=== PATIENT | female | born 1945 | race Caucasian/White ===

== ENCOUNTER 2019-06-24 13:24 | Inpatient (IN) ==
[2019-06-24] MEDS ORDERED: Ipratropium/Albuterol Neb 3 ML IH ONE (13:49)
--- NOTE | 2019-06-24 13:50 | Emergency Department Note ---
Disposition Clinical Impression: Pulmonary nodule, Acute exacerbation of chronic obstructive airways disease Community acquired pneumonia Qualifiers: Laterality: right Lung location: lower lobe of lung Qualified Code(s): J18.1 - Lobar pneumonia, unspecified organism Congestive heart failure Qualifiers: Heart failure type: unspecified Heart failure chronicity: unspecified Qualified Code(s): I50.9 - Heart failure, unspecified Compression fracture of T8 vertebra Qualifiers: Encounter type: initial encounter Qualified Code(s): S22.060A - Wedge compression fracture of T7-T8 vertebra, initial encounter for closed fracture Disposition: Admitted As Inpatient Condition: Fair Time of Disposition: 16:01 General Adult HPI - General Chief complaint: ED Shortness of Breath/Dyspnea Stated complaint: LINDA Time Seen by Provider: 06/24/19 13:26 Source: family Limitations: no limitations Nursing Notes Reviewed: Yes Vital Signs Reviewed: Yes - History of Present Illness HPI Narrative: Ms. Munoz is a 74 yo woman presenting to the ED on 06/24/19 for evaluation of back pain "along her backbone" of 2 days duration that improves with rest, NSAIDs and percocet. THe pain started when she fell while getting out of bed and caught herself by her left arm. She was seen two days ago for shortness of breath. She is on home O2 2L. She denies syncope, prodromal symptoms, chills, [place], LOC, abdominal pain, CP, vomiting, diarrhea, burning with urination, recent illness, or increased SOB w/ exertion. PMH significant for COPD, possible stroke per granddaughter a few years ago. No history of NH, anticoagulation. Social history significant for quitting smoking approximately 3.5 years ago. Pain Scale: 0 - Related Data Home Medications Medication Instructions Recorded Confirmed Atorvastatin Calcium [Lipitor] 80 mg PO HS 11/07/16 06/24/19 Ipratropium/Albuterol Sulfate 2 puff IH Q4H PRN 11/07/16 06/24/19 [Combivent Respimat Inhal [place]] Levothyroxine [Synthroid] 175 mcg PO DAILY 11/07/16 06/24/19 Lisinopril [Zestril] 20 mg PO DAILY 11/07/16 06/24/19 OxyCODONE/APAP 10/325 [Percocet 1 tab PO Q6HR PRN 11/07/16 06/24/19 10/325 MG] Trazodone HCl 25 mg PO HS 11/07/16 06/24/19 metFORMIN [Glucophage] 500 mg PO BIDWM 11/07/16 06/24/19 Albuterol Sulfate [Proair Hfa] 2 puff IH Q4-6H PRN 11/08/16 06/24/19 Ipratropium/Albuterol Neb [Duoneb] 3 ml IH Q6HR PRN 11/08/16 06/24/19 Pediatric Multivit Comb #25/FA 300 mcg PO DAILY 11/08/16 06/24/19 [Flintstones Multivit Chew Tab] Erythromycin [Wilbert-Tab] 250 mg PO BID 06/24/19 06/24/19 Previous Rx's Medication Instructions Recorded Budesonide/Formoterol 160/4.5 2 puff IH BIDR #1 inhaler 11/09/16 [Symbicort 160/4.5] predniSONE [PredniSONE] 30 mg PO DAILY 3 Days tablet 11/09/16 Allergies Allergy/AdvReac Type Severity Reaction Status Date / Time No Known Allergies Allergy Verified 11/08/16 15:24 All systems ED: reviewed and negative except as stated. Cardiovascular: Reports: dyspnea on exertion Respiratory: Reports: dyspnea Neurological: Reports: other (dizziness) Past Medical History - Past Medical History Attestation: Yes The following information was validated with the patient. Source: patient, old records reviewed, obtained from family, nursing notes reviewed Medical history: Reports: COPD, diabetes, hypertension, thyroid disease Surgical history: Reports: cholecystectomy Psychiatric history: Reports: no psych history - Social History Smoking Status: Former smoker Smokeless Tobacco Status: No Alcohol use: Reports: none Drug use: Reports: none Physical Exam PE Gen: AOx3, responsive ENT: No discharge from nose, eyes tearing 2/2 anxiety, pupils equal and reactive, no lymphadenopathy palpable Card: Regular rhythm and rate w/ 2/6 systolic possible murmur on auscultation. No cyanosis, no clubbing, no pitting edema peripherally. Good perfusion to extremities. Resp: Decreased breath sounds bilaterally w/o wheezes, cough or stridor. GI: Abdomen soft, nondistended, nontender to palpation. No bruit on auscultaion. : No suprapubic tenderness or distention on palpation. MSK: No erythema, edema or pain on palpation along spine, no abrasion or ecchymoses on back. Skin dry, flaking along extremities. Negative for rash. Neuro: CNI-XII intact. Resting tremor of left hand. Psych: Appropriate affect, anxious - General Limitations: no limitations General appearance: alert, in no apparent distress Course Course Narrative: VS stable. Patient O2 in 60s-80s on initial presentation, improved to 97% with 6L NC in room and now in mid90s on 2L. Conflicting histories from patient and family members require consideration of both musculoskeletal, cardiac, neurological and respiratory etiologies. EKG, BNP, troponin ordered along with CXR, CT chest to evaluate for fracture and CT-A to r/o PE. CXR consistent with RLL pneumonia with interstitial edema and cardiomegaly. BNP elevated at 404 suggesting new-onset CHF compared to results of patient's last echo [address]-A negative, CT thoracic indicated compression fracture in T8 and 7 mm lung nodule. Discussed with hospitalist, patient to be admitted. - Reevaluation(s) Reevaluation #1: Patient counseled no results and encouraged to remain for admission. Initially did not want to remain, but after second discussion with Dr. Osorio agreed with inpatient treatment. VS stable. Vital Signs Temperature 98.1 F 06/24/19 13:33 Pulse Rate 95 06/24/19 13:33 Respiratory Rate 16 06/24/19 13:33 Blood Pressure 159/88 06/24/19 13:33 O2 Sat by Pulse Oximetry 83 06/24/19 13:33 Temperature 98.1 F 06/24/19 13:33 Pulse Rate 95 06/24/19 13:33 Respiratory Rate 16 06/24/19 14:13 Blood Pressure 159/88 06/24/19 13:33 O2 Sat by Pulse Oximetry 93 06/24/19 14:13 Oxygen Delivery Oxygen Delivery Nasal Cannula Medical Decision Making - Medical Records Medical records reviewed: Yes I reviewed the patient's medical records. - Lab Data Lab results reviewed: Yes I reviewed the patient's lab results. Result diagrams: 06/24/19 14:10 06/24/19 14:10 Lab Results 06/24/19 06/24/19 06/24/19 Range/Units 14:10 14:10 14:10 WBC 9.7 (4.3-11.1) K/mcL RBC 4.13 (3.82-4.97) M/mcL Hgb 11.6 (11.5-15.4) g/dL Hct 38.6 (35.3-44.9) % MCV 93.5 (83.0-100.0) fL MCH 28.1 (28.0-33.3) pg MCHC 30.1 L (31.6-35.5) g/dL RDW 14.2 (11.5-14.5) % Plt Count 249 (140-400) K/mcL MPV 9.5 (9.4-12.4) fL Immature Gran % 0.7 (0-4) % Seg Neutrophils % 79.8 % Lymphocytes % 12.2 % Monocytes % 5.0 % Eosinophils % 2.0 % Basophils % 0.3 % Neutrophils # 7.8 (1.6-8.9) K/mcL Lymphocytes # 1.2 (0.6-4.6) K/mcL Monocytes # 0.5 (0.0-1.3) K/mcL Eosinophils # 0.2 (0.0-0.6) K/mcL Basophils # 0.0 (0.0-0.2) K/mcL Sodium 135 L (136-145) mEq/L Potassium 4.0 (3.5-5.1) mEq/L Chloride 93 L (98-107) mEq/L Carbon Dioxide 36 H (23-29) mEq/L BUN 19 (8-23) mg/dL Creatinine 1.24 H (0.60-1.20) mg/dL Est GFR ( Amer) 51 L (> 60) Est GFR (Non-Af Amer) 42 L (> 60) BUN/Creatinine Ratio 15 (6-26) Glucose 171 H (70-105) mg/dL Calculated Osmolality 286 (280-300) Lactic Acid (0.5-2.2) mmol/L Calcium 9.1 (8.6-10.3) mg/dL Troponin I < 0.03 (< 0.04) ng/mL B-Natriuretic Peptide 404 H (Less than 100) pg/mL Urine Color (Yellow) Urine Clarity (Clear) Urine pH (5.0-8.0) pH Units Ur Specific [place] (1.010-1.025) Urine Protein (Neg-Trace) mg/dL Urine Glucose (UA) (Normal) mg/dL Urine Ketones (Negative) mg/dL Urine Blood (Negative) Urine Nitrite (Negative) Urine Bilirubin (Negative) Urine Urobilinogen (Normal) mg/dL Ur Leukocyte Esterase (Negative) Urine Microscopic RBC (0-3) per hpf Urine Microscopic WBC (0-3) per hpf Ur Squamous Epith Cells (None-Few) per lpf Urine Bacteria (None-Few) per hpf Hyaline Casts (None-Few) per lpf Ur Culture Indicated? (NO) 06/24/19 06/24/19 Range/Units 14:54 15:30 WBC (4.3-11.1) K/mcL RBC (3.82-4.97) M/mcL Hgb (11.5-15.4) g/dL Hct (35.3-44.9) % MCV (83.0-100.0) fL MCH (28.0-33.3) pg MCHC (31.6-35.5) g/dL RDW (11.5-14.5) % Plt Count (140-400) K/mcL MPV (9.4-12.4) fL Immature Gran % (0-4) % Seg Neutrophils % % Lymphocytes % % Monocytes % % Eosinophils % % Basophils % % Neutrophils # (1.6-8.9) K/mcL Lymphocytes # (0.6-4.6) K/mcL Monocytes # (0.0-1.3) K/mcL Eosinophils # (0.0-0.6) K/mcL Basophils # (0.0-0.2) K/mcL Sodium (136-145) mEq/L Potassium (3.5-5.1) mEq/L Chloride (98-107) mEq/L Carbon Dioxide (23-29) mEq/L BUN (8-23) mg/dL Creatinine (0.60-1.20) mg/dL Est GFR ( Amer) (> 60) Est GFR (Non-Af Amer) (> 60) BUN/Creatinine Ratio (6-26) Glucose (70-105) mg/dL Calculated Osmolality (280-300) Lactic Acid 1.5 (0.5-2.2) mmol/L Calcium (8.6-10.3) mg/dL Troponin I (< 0.04) ng/mL B-Natriuretic Peptide (Less than 100) pg/mL Urine Color Yellow (Yellow) Urine Clarity Clear (Clear) Urine pH 6.0 (5.0-8.0) pH Units Ur Specific [place] 1.013 (1.010-1.025) Urine Protein 30 H (Neg-Trace) mg/dL Urine Glucose (UA) Normal (Normal) mg/dL Urine Ketones Negative (Negative) mg/dL Urine Blood Negative (Negative) Urine Nitrite Negative (Negative) Urine Bilirubin Negative (Negative) Urine Urobilinogen Normal (Normal) mg/dL Ur Leukocyte Esterase Large H (Negative) Urine Microscopic RBC 0-3 (0-3) per hpf Urine Microscopic WBC 50-100 H (0-3) per hpf Ur Squamous Epith Cells Many H (None-Few) per lpf Urine Bacteria Few (None-Few) per hpf Hyaline Casts None Seen (None-Few) per lpf Ur Culture Indicated? YES A (NO) - Radiology Data Radiology results reviewed: Yes I reviewed the patient's radiology results. Chest X-Ray 06/24/19 13:45 IMPRESSION: Findings as above likely related to congestive heart failure and edema. Hazy opacity in the right lung base may represent asymmetric edema, atelectasis, or superimposed infection D/ / Marysol Umanzor MD / Marysol Umanzor MD Interpreting Provider: Marysol Umanzor MD Chest CTA 06/24/19 14:02 IMPRESSION: No thoracic aortic aneurysm. No dissection involving the arch or ascending thoracic aorta. Evaluation of the descending thoracic aorta is limited by poor bolus however no findings to suggest dissection. T8 compression fracture with loss of approximately 50% vertebral body height. Small right pleural effusion. Smooth interlobular septal wall thickening likely related to edema. Patchy opacities in the right lower lobe and right middle lobe which may represent atelectasis or infection. D/ / Marysol Umanzor MD / Marysol Umanzor MD Interpreting Provider: Marysol Umanzor MD Thoracic Spine CT 06/24/19 14:32 IMPRESSION: Moderate compression fracture of T8 of indeterminate age. No retropulsion of the posterior cortex. Mild 10% loss of height of the T5 vertebral body which could represent a compression fracture as well, of indeterminate age. A 7 mm left upper lobe nodule. Comparison with remote studies would be helpful if available. Otherwise, see below recommendation. RECOMMENDATIONS: 7.0 mm solid pulmonary nodule. Recommend a non-contrast Chest CT at 6-12 months, then consider an additional non-contrast Chest CT at 18-24 months. These guidelines do not apply to patients younger than 35 years, immunocompromised patients, and patients with cancer. Follow up in patients with significant comorbidities as clinically warranted. For lung cancer screening, adhere to Lung-RADS guidelines. Reference: Radiology. 2017; 284(1):228-43. D/ / Renuka Renae Cha, MD / Renuka Renae Cha, MD Interpreting Provider: Renuka Renae Cha, MD - EKG Data EKG #1 EKG shows normal: sinus rhythm Rhythm: PAC's [place]/QRS: normal Voltage: c/w LVH QTc: prolonged (519) When compared to previous EKG there are: changes noted (Prior EKG 11/07/16) Interpretation: no acute changes
[2019-06-24] MEDS ORDERED: predniSONE 20 MG TABLET PO ONE (13:59)
[2019-06-24] MEDS ORDERED: Isovue-370 500 ML BOTTLE IVP ONE (14:02)
[2019-06-24 14:24] LABS: Basophils % 0.3 %; Eosinophils # 0.2 K/mcL (0.0-0.6); Hematocrit 38.6 % (35.3-44.9); Hemoglobin 11.6 g/dL (11.5-15.4); Immature Granulocytes % 0.7 % (0-4); Lymphocytes # 1.2 K/mcL (0.6-4.6); Lymphocytes % 12.2 %; Mean Corpuscular HGB Conc 30.1 g/dL (31.6-35.5); Mean Corpuscular Hemoglobin 28.1 pg (28.0-33.3); Mean Corpuscular Volume 93.5 fL (83.0-100.0); Mean Platelet Volume 9.5 fL (9.4-12.4); Monocytes # 0.5 K/mcL (0.0-1.3); Neutrophils # 7.8 K/mcL (1.6-8.9); Platelet Count 249 K/mcL (140-400); Red Blood Count 4.13 M/mcL (3.82-4.97); Red Cell Distribution Width 14.2 % (11.5-14.5); Segmented Neutrophils % 79.8 %; White Blood Count 9.7 K/mcL (4.3-11.1)
[2019-06-24] MEDS ORDERED: cefTRIAXone 1,000 MG in Water for inj. (sterile) 10 ML IVP ONE (14:39)
[2019-06-24 14:44] LABS: BUN/Creatinine Ratio 15 (6-26); Blood Urea Nitrogen 19 mg/dL (8-23); Calcium 9.1 mg/dL (8.6-10.3); Carbon Dioxide 36 mEq/L (23-29); Chloride 93 mEq/L (98-107); Glucose 171 mg/dL (70-105); Osmolality,Calculated 286 (280-300); Sodium 135 mEq/L (136-145); Troponin I < 0.03 ng/mL (< 0.04); eGFR For African Americans 51 (> 60); eGFR For Non-African Americans 42 (> 60)
[2019-06-24] MEDS ORDERED: 0.9 % Sodium Chloride 500 ML IVC ONE (15:05)
[2019-06-24] MEDS ORDERED: 0.9 % Sodium Chloride 1,000 ML IVC SCH (15:15)
[2019-06-24 15:55] LABS: Bilirubin,Urine Negative (Negative); Blood,Urine Negative (Negative); Clarity,Urine Clear (Clear); Color,Urine Yellow (Yellow); Glucose,Urine (UA) Normal (Normal); Ketones,Urine Negative (Negative); Leukocyte Esterase,Urine Large (Negative); Nitrite,Urine Negative (Negative); Protein,Urine 30 mg/dL (Neg-Trace); Specific Gravity,Urine 1.013 (1.010-1.025); Urobilinogen,Urine Normal (Normal)
[2019-06-24 15:58] LABS: Hyaline Casts,Urine None Seen per lpf (None-Few); RBC,Urine 0-3 per hpf (0-3); Squamous Epithelial Cell,Urine Many per lpf (None-Few); WBC,Urine 50-100 per hpf (0-3)
[2019-06-24] MEDS ORDERED: *HR* FentaNYL (PF) 100 MCG/2 ML VIAL IVP ONE (16:05)
[2019-06-24 16:09] LABS: Bacteria,Urine Few per hpf (None-Few)
--- NOTE | 2019-06-24 16:12 | Emergency Department Note ---
Disposition Clinical Impression: Community acquired pneumonia Qualifiers: Laterality: right Lung location: lower lobe of lung Qualified Code(s): J18.1 - Lobar pneumonia, unspecified organism Congestive heart failure Qualifiers: Heart failure type: unspecified Heart failure chronicity: unspecified Qualified Code(s): I50.9 - Heart failure, unspecified Disposition: Admitted As Inpatient Condition: Fair Referrals: Onur Franklin MD [Primary Care Provider] - Forms: ED Satisfaction Letter Time of Disposition: 16:11 General Adult HPI - General Chief complaint: ED Shortness of Breath/Dyspnea Stated complaint: LINDA Time Seen by Provider: 06/24/19 13:26 Source: family Limitations: no limitations - History of Present Illness Pain Scale: 0 - Related Data Home Medications Medication Instructions Recorded Confirmed Atorvastatin Calcium [Lipitor] 80 mg PO HS 11/07/16 06/24/19 Ipratropium/Albuterol Sulfate 2 puff IH Q4H PRN 11/07/16 06/24/19 [Combivent Respimat Inhal [place]] Levothyroxine [Synthroid] 175 mcg PO DAILY 11/07/16 06/24/19 Lisinopril [Zestril] 20 mg PO DAILY 11/07/16 06/24/19 OxyCODONE/APAP 10/325 [Percocet 1 tab PO Q6HR PRN 11/07/16 06/24/19 10/325 MG] Trazodone HCl 25 mg PO HS 11/07/16 06/24/19 metFORMIN [Glucophage] 500 mg PO BIDWM 11/07/16 06/24/19 Albuterol Sulfate [Proair Hfa] 2 puff IH Q4-6H PRN 11/08/16 06/24/19 Ipratropium/Albuterol Neb [Duoneb] 3 ml IH Q6HR PRN 11/08/16 06/24/19 Pediatric Multivit Comb #25/FA 300 mcg PO DAILY 11/08/16 06/24/19 [Flintstones Multivit Chew Tab] Erythromycin [Wilbert-Tab] 250 mg PO BID 06/24/19 06/24/19 Previous Rx's Medication Instructions Recorded Budesonide/Formoterol 160/4.5 2 puff IH BIDR #1 inhaler 11/09/16 [Symbicort 160/4.5] predniSONE [PredniSONE] 30 mg PO DAILY 3 Days tablet 11/09/16 Allergies Allergy/AdvReac Type Severity Reaction Status Date / Time No Known Allergies Allergy Verified 11/08/16 15:24 Cardiovascular: Reports: dyspnea on exertion Respiratory: Reports: dyspnea Neurological: Reports: other (dizziness) Past Medical History - Past Medical History Medical history: Reports: COPD, diabetes, hypertension, thyroid disease Surgical history: Reports: cholecystectomy Psychiatric history: Reports: no psych history - Social History Smoking Status: Former smoker Smokeless Tobacco Status: No Alcohol use: Reports: none Drug use: Reports: none Physical Exam - General Limitations: no limitations General appearance: alert, in no apparent distress Course Vital Signs Temperature 98.1 F 06/24/19 13:33 Pulse Rate 95 06/24/19 13:33 Respiratory Rate 16 06/24/19 13:33 Blood Pressure 159/88 06/24/19 13:33 O2 Sat by Pulse Oximetry 83 06/24/19 13:33 Temperature 98.1 F 06/24/19 13:33 Pulse Rate 95 06/24/19 13:33 Respiratory Rate 16 06/24/19 14:13 Blood Pressure 159/88 06/24/19 13:33 O2 Sat by Pulse Oximetry 93 06/24/19 14:13 Oxygen Delivery Oxygen Delivery Nasal Cannula Medical Decision Making - Lab Data Result diagrams: 06/24/19 14:10 06/24/19 14:10 Lab Results 06/24/19 06/24/19 06/24/19 Range/Units 14:10 14:10 14:10 WBC 9.7 (4.3-11.1) K/mcL RBC 4.13 (3.82-4.97) M/mcL Hgb 11.6 (11.5-15.4) g/dL Hct 38.6 (35.3-44.9) % MCV 93.5 (83.0-100.0) fL MCH 28.1 (28.0-33.3) pg MCHC 30.1 L (31.6-35.5) g/dL RDW 14.2 (11.5-14.5) % Plt Count 249 (140-400) K/mcL MPV 9.5 (9.4-12.4) fL Immature Gran % 0.7 (0-4) % Seg Neutrophils % 79.8 % Lymphocytes % 12.2 % Monocytes % 5.0 % Eosinophils % 2.0 % Basophils % 0.3 % Neutrophils # 7.8 (1.6-8.9) K/mcL Lymphocytes # 1.2 (0.6-4.6) K/mcL Monocytes # 0.5 (0.0-1.3) K/mcL Eosinophils # 0.2 (0.0-0.6) K/mcL Basophils # 0.0 (0.0-0.2) K/mcL Sodium 135 L (136-145) mEq/L Potassium 4.0 (3.5-5.1) mEq/L Chloride 93 L (98-107) mEq/L Carbon Dioxide 36 H (23-29) mEq/L BUN 19 (8-23) mg/dL Creatinine 1.24 H (0.60-1.20) mg/dL Est GFR ( Amer) 51 L (> 60) Est GFR (Non-Af Amer) 42 L (> 60) BUN/Creatinine Ratio 15 (6-26) Glucose 171 H (70-105) mg/dL Calculated Osmolality 286 (280-300) Lactic Acid (0.5-2.2) mmol/L Calcium 9.1 (8.6-10.3) mg/dL Troponin I < 0.03 (< 0.04) ng/mL B-Natriuretic Peptide 404 H (Less than 100) pg/mL Urine Color (Yellow) Urine Clarity (Clear) Urine pH (5.0-8.0) pH Units Ur Specific [place] (1.010-1.025) Urine Protein (Neg-Trace) mg/dL Urine Glucose (UA) (Normal) mg/dL Urine Ketones (Negative) mg/dL Urine Blood (Negative) Urine Nitrite (Negative) Urine Bilirubin (Negative) Urine Urobilinogen (Normal) mg/dL Ur Leukocyte Esterase (Negative) 06/24/19 06/24/19 Range/Units 14:54 15:30 WBC (4.3-11.1) K/mcL RBC (3.82-4.97) M/mcL Hgb (11.5-15.4) g/dL Hct (35.3-44.9) % MCV (83.0-100.0) fL MCH (28.0-33.3) pg MCHC (31.6-35.5) g/dL RDW (11.5-14.5) % Plt Count (140-400) K/mcL MPV (9.4-12.4) fL Immature Gran % (0-4) % Seg Neutrophils % % Lymphocytes % % Monocytes % % Eosinophils % % Basophils % % Neutrophils # (1.6-8.9) K/mcL Lymphocytes # (0.6-4.6) K/mcL Monocytes # (0.0-1.3) K/mcL Eosinophils # (0.0-0.6) K/mcL Basophils # (0.0-0.2) K/mcL Sodium (136-145) mEq/L Potassium (3.5-5.1) mEq/L Chloride (98-107) mEq/L Carbon Dioxide (23-29) mEq/L BUN (8-23) mg/dL Creatinine (0.60-1.20) mg/dL Est GFR ( Amer) (> 60) Est GFR (Non-Af Amer) (> 60) BUN/Creatinine Ratio (6-26) Glucose (70-105) mg/dL Calculated Osmolality (280-300) Lactic Acid 1.5 (0.5-2.2) mmol/L Calcium (8.6-10.3) mg/dL Troponin I (< 0.04) ng/mL B-Natriuretic Peptide (Less than 100) pg/mL Urine Color Yellow (Yellow) Urine Clarity Clear (Clear) Urine pH 6.0 (5.0-8.0) pH Units Ur Specific [place] 1.013 (1.010-1.025) Urine Protein 30 H (Neg-Trace) mg/dL Urine Glucose (UA) Normal (Normal) mg/dL Urine Ketones Negative (Negative) mg/dL Urine Blood Negative (Negative) Urine Nitrite Negative (Negative) Urine Bilirubin Negative (Negative) Urine Urobilinogen Normal (Normal) mg/dL Ur Leukocyte Esterase Large H (Negative) Attestation Statement - Attestation Attestation: I reviewed the residents documentation and agree with the residents assessment and plan of care. I have personally had face to face time with the patient. (Brief History, Brief Exam, and MDM) I personally supervised and was present for the ladd/critical portions of the following procedures completed by the resident: EKG 74 year old female presents to the eD with complaints of chest pain and dyspne and mid thoracic back pain and was hypoxic upon arrival to 70% and typically wears 2LNC at all times and has been ttrated back to 2LN and is mainintsing 95% at this time. It appers she failed outptient therapy for pnuemoin and she may even have new onset CHF. We will obtin a CTA to rule out PE and tht study is otherwise PE negative. We have started IV ABX and will admit to medicne.
[2019-06-24] MEDS ORDERED: *HR* OxyCODONE/APAP 5/325 TABLET PO ONE (16:19)
[2019-06-24] MEDS ORDERED: *HR* OxyCODONE/APAP 10/325 TABLET PO PRN (16:33)
[2019-06-24] MEDS ORDERED: Ipratropium/Albuterol Neb 3 ML IH PRN (16:33)
[2019-06-24] MEDS ORDERED: Naloxone 0.4 MG/ML INJ IVP PRN (16:39)
--- NOTE | 2019-06-24 16:47 | Internal Med History&Physical ---
Date of Encounter: 06/24/19 Time of Encounter: 16:30 Internal Medicine - H&P: HPI Chief complaint: Shortness of breath, severe back pain Admitted From: Emergency Dept Plans for Post Hospital Care: Home History of present illness: Ms. Munoz is a 74 year old female patient with a history of essential hypertension, diabetes, COPD and chronic respiratory failure on home oxygen who presented to the ER with complaints of severe back pain that has been worsening since this morning. Patient had been having shortness of breath that began 2 days back and she was seen in urgent care where she was given a steroid injection and an antibiotic injection and was discharged home on azithromycin. At that time chest x-rays were done and patient was told that she did not have any pneumonia. She states her breathing improved somewhat but then she pushed herself up from bed 2 days back and may have caught her back and she began to have pain since then but it got worse this morning. No recent hospitalizations. No trauma. No fevers or chills. No significant cough or sputum production. She denies any numbness or tingling in her lower extremities. No bowel or bladder incontinence. Past Med Surg Social Fam HX - Past Medical History Attestation: Yes The following information was validated with the patient. Source: patient Medical history: COPD, diabetes, hypertension, thyroid disease Psychiatric history: no psych history - Past Surgical History Surgical History: cholecystectomy - Social History Smoking Status: Former smoker Smokeless Tobacco Status: No Alcohol use: none Drug use: none - Family History Mother Family Member Ethnicity: Non- Living Status: Hx Family Cardiac Disorders: No Hx Family Respiratory Disorders: Yes (TB) Hx Family Cancer: No Hx Family GI Disorders: No Hx Family Endocrine Disorder: No Hx Family Neuromuscular Disorders: No Hx Family Neurologic Disorders: No Hx Family HEENT Disorders: No Hx Family Autoimmune Disorders: No Internal Medicine - H&P: Meds Atorvastatin Calcium [Lipitor] 80 mg PO HS 11/07/16 [History] Ipratropium/Albuterol Sulfate [Combivent Respimat Inhal [place]] 2 puff IH Q4H PRN 11/07/16 [History] Levothyroxine [Synthroid] 175 mcg PO DAILY 11/07/16 [History] Lisinopril [Zestril] 20 mg PO DAILY 11/07/16 [History] OxyCODONE/APAP 10/325 [Percocet 10/325 MG] 1 tab PO Q6HR PRN 11/07/16 [History] Trazodone HCl 25 mg PO HS 11/07/16 [History] metFORMIN [Glucophage] 500 mg PO BIDWM 11/07/16 [History] Albuterol Sulfate [Proair Hfa] 2 puff IH Q4-6H PRN 11/08/16 [History] Ipratropium/Albuterol Neb [Duoneb] 3 ml IH Q6HR PRN 11/08/16 [History] Pediatric Multivit Comb #25/FA [Flintstones Multivit Chew Tab] 300 mcg PO DAILY 11/08/16 [History] Budesonide/Formoterol 160/4.5 [Symbicort 160/4.5] 2 puff IH BIDR #1 inhaler 11/09/16 [Rx] predniSONE [PredniSONE] 30 mg PO DAILY 3 Days tablet 11/09/16 [Rx] Erythromycin [Wilbert-Tab] 250 mg PO BID 06/24/19 [History] Allergy/AdvReac Type Severity Reaction Status Date / Time No Known Allergies Allergy Verified 11/08/16 15:24 All Systems PM: A 10-system review of systems was performed and is negative for pertinent findings except as documented above in the HPI. - Constitutional Constitutional: malaise, no chills, no fever(s), no night sweats - EENT Eyes: no change in vision, no discharge, no pain, no photophobia Ears: no ear discharge, no ear pain, no tinnitus Nose, mouth and throat: no dysphagia, no nasal discharge, no neck pain, no sore throat - Cardiovascular Cardiovascular ROS IM: no chest pain, no diaphoresis, no dyspnea, no lighth eadedness, no palpitations, no syncope - Respiratory Respiratory: dyspnea, no cough, no wheezing, no excessive phlegm production - Gastrointestinal Gastrointestinal: no abdominal pain, no diarrhea, no hematemesis, no hemat ochezia, no melena, no nausea, no vomiting - Genitourinary Genitourinary: no change in urinary stream, no dysuria, no flank pain, no hematuria - Musculoskeletal Musculoskeletal ROS IM: back pain, no numbness, no tingling - Integumentary Integumentary IM: no rash, no unusual bruising - Neurological Neurological ROS: no confusion, no convulsions, no focal weakness, no numbness, no tingling, no tremor(s) - Hematologic/Lymphatic Hematologic/Lymphatic: no easy bruising - Constitutional Vitals: Temp Pulse Resp BP Pulse Ox 98.1 F 95 16 159/88 93 06/24/19 13:33 06/24/19 13:33 06/24/19 14:13 06/24/19 13:33 06/24/19 14:13 Exam: General: Patient is alert, mild distress , oriented x 3, morbidly obese Head: atraumatic, normocephalic, ENT: Mucous membranes moist Eye: normal appearance, PERRL, no scleral icterus, no conjunctival injection Neck: normal inspection, trachea midline, full ROM, no carotid bruits Chest: normal inspection, symmetric chest rise Respiratory: Coarse breath sounds bilaterally, end expiratory wheezing. Cardiovascular: Regular rate and rhythm. s1 and s2 normal No clicks, rubs, gallops, or murmurs. No pedal edema Abdomen: Abdomen is soft, nontender. Bowel sounds are present Musculoskeletal: Spontaneously moving all extremities Skin: warm, dry and flaking skin all over Neuro: Alert oriented x 3 normal cranial nerves, no focal deficits Psych: Patient's affect is normal Internal Med - H&P Results - Labs CBC & Chem 7: 06/24/19 14:10 06/24/19 14:10 Labs: Short CBC 06/24/19 Range/Units 14:10 WBC 9.7 (4.3-11.1) K/mcL Hgb 11.6 (11.5-15.4) g/dL Hct 38.6 (35.3-44.9) % Plt Count 249 (140-400) K/mcL Neutrophils # 7.8 (1.6-8.9) K/mcL BMP 06/24/19 14:10 Sodium 135 L Potassium 4.0 Chloride 93 L Carbon Dioxide 36 H BUN 19 Creatinine 1.24 H Glucose 171 H Calcium 9.1 Cardiac Enzymes 06/24/19 Range/Units 14:10 Troponin I < 0.03 (< 0.04) ng/mL Urine 06/24/19 Range/Units 15:30 Urine Color Yellow (Yellow) Urine Clarity Clear (Clear) Urine pH 6.0 (5.0-8.0) pH Units Ur Specific [place] 1.013 (1.010-1.025) Urine Protein 30 H (Neg-Trace) mg/dL Urine Glucose (UA) Normal (Normal) mg/dL - Impressions ITS Impressions Chest X-Ray 06/24/19 13:45 IMPRESSION: Findings as above likely related to congestive heart failure and edema. Hazy opacity in the right lung base may represent asymmetric edema, atelectasis, or superimposed infection D/ / Marysol Umanzor MD / Marysol Umanzor MD Interpreting Provider: Marysol Umanzor MD Chest CTA 06/24/19 14:02 IMPRESSION: No thoracic aortic aneurysm. No dissection involving the arch or ascending thoracic aorta. Evaluation of the descending thoracic aorta is limited by poor bolus however no findings to suggest dissection. T8 compression fracture with loss of approximately 50% vertebral body height. Small right pleural effusion. Smooth interlobular septal wall thickening likely related to edema. Patchy opacities in the right lower lobe and right middle lobe which may represent atelectasis or infection. D/ / Marysol Umanzor MD / Marysol Umanzor MD Interpreting Provider: Marysol Umanzor MD Thoracic Spine CT 06/24/19 14:32 IMPRESSION: Moderate compression fracture of T8 of indeterminate age. No retropulsion of the posterior cortex. Mild 10% loss of height of the T5 vertebral body which could represent a compression fracture as well, of indeterminate age. A 7 mm left upper lobe nodule. Comparison with remote studies would be helpful if available. Otherwise, see below recommendation. RECOMMENDATIONS: 7.0 mm solid pulmonary nodule. Recommend a non-contrast Chest CT at 6-12 months, then consider an additional non-contrast Chest CT at 18-24 months. These guidelines do not apply to patients younger than 35 years, immunocompromised patients, and patients with cancer. Follow up in patients with significant comorbidities as clinically warranted. For lung cancer screening, adhere to Lung-RADS guidelines. Reference: Radiology. 2017; 284(1):228-43. D/ / Renuka Renae Cha, MD / Renuka Renae Cha, MD Interpreting Provider: Renuka Renae Cha, MD - Assessment and Plan (1) Pneumonia Current Visit: Yes Status: Suspected Qualifiers: Pneumonia type: due to Pneumococcus Laterality: right Lung location: middle lobe of lung Qualified Code(s): J13 - Pneumonia due to Streptococcus pneumoniae (2) Acute exacerbation of chronic obstructive airways disease Current Visit: Yes Status: Acute (3) Compression fracture of T8 vertebra Current Visit: Yes Status: Acute Qualifiers: Encounter type: initial encounter Qualified Code(s): S22.060A - Wedge compression fracture of T7-T8 vertebra, initial encounter for closed fracture (4) Morbid obesity with BMI of 40.0-44.9, adult Current Visit: Yes Status: Chronic (5) HTN (hypertension) Current Visit: Yes Status: Chronic Qualifiers: Hypertension type: essential hypertension Qualified Code(s): I10 - Essential (primary) hypertension (6) Chronic respiratory failure with hypoxia Current Visit: Yes Status: Chronic - Summary of Assessment and Plan Summary of Assessment and Plan: Suspected pneumococcal pneumonia: CT scan shows possible pneumonia involving the right middle lobe and lower lobe. We will treat with ceftriaxone and azithromycin. Check urine Legionella and streptococcal antigens. Check pro calcitonin. Follow blood cultures. If patient starts making any sputum, will send sputum for culture. COPD: With acute exacerbation. Patient does have increased wheezing bilaterally. Will place her on bronchodilators, prednisone. Chronic respiratory failure with hypoxia: Continue O2 supplementation. T5 and T8 compression fractures: Indeterminate age. Patient having severe back pain. Will treat with symptomatic measures. Patient already takes Percocet at home. We will continue this medication. Discussed with pain management. They will see the patient in consultation on Wednesday. In the meantime, recommend ambulation as tolerated. No need for brace. Pain control. Essential hypertension: Blood pressure elevated. Continue lisinopril. Diabetes mellitus type 2: Monitor blood sugars. Sliding scale insulin. Expect rise in blood sugars with use of prednisone. Will adjust insulin regimen accordingly. Mild acute kidney injury: Creatinine 1.24. Baseline normal. Patient received IV fluids in the ER. Will recheck in the morning. Avoid nephrotoxic agents DVT prophylaxis with subcutaneous heparin - Time Spent With Patient Total time spent is greater than 50% in coordination of care (as documented) at patient's floor/unit and/or counseling patient:
[2019-06-24] MEDS ORDERED: *HR* Acetaminophen w/Cod 300-30 mg 1 TAB TABLET PO PRN (16:56)
[2019-06-24] MEDS ORDERED: Acetaminophen IV 1,000 MG/100 ML INFUS..BTL IVPB PRN (16:57)
[2019-06-24] MEDS ORDERED: D5% in Water 1,000 ML IVC PRN (17:03)
[2019-06-24] MEDS ORDERED: *HR* Dextrose 50 % in Water (Syg) 50 ML SYRINGE IVP PRN (17:03)
[2019-06-24] MEDS ORDERED: Dextrose Gel 15 GM/37.5 ML TUBE PO PRN ×2 (17:03)
[2019-06-24] MEDS: Insulin LISPRO 300 UNITS/3 ML VIAL SQ SCH ×2 (18:06→21:05)
[2019-06-24] MEDS: *HR* Heparin 5,000 UNIT/ML VIAL SQ SCH (18:06)
[2019-06-24] MEDS: Azithromycin 500 MG in D5% in Water 250 ML IVPB SCH (18:07)
[2019-06-24] MEDS: Ipratropium/Albuterol Neb 3 ML IH SCH ×2 (19:56→22:21)
[2019-06-24] MEDS: traZODone 50 MG TABLET PO SCH (21:03)
[2019-06-24] MEDS: *HR* OxyCODONE/APAP 10/325 TABLET PO PRN (21:03)
[2019-06-24] MEDS: Budesonide/Formoterol 160/4.5 1 PUFF INH IH SCH (22:21)
[2019-06-25] MEDS: Ipratropium/Albuterol Neb 3 ML IH SCH ×4 (03:53→19:38)
[2019-06-25] MEDS: *HR* Heparin 5,000 UNIT/ML VIAL SQ SCH ×2 (05:49→16:49)
[2019-06-25 07:28] LABS: Basophils % 0.3 %; Eosinophils % 0.3 %; Hematocrit 36.4 % (35.3-44.9); Hemoglobin 10.6 g/dL (11.5-15.4); Immature Granulocytes % 0.8 % (0-4); Lymphocytes # 1.2 K/mcL (0.6-4.6); Lymphocytes % 16.3 %; Mean Corpuscular HGB Conc 29.1 g/dL (31.6-35.5); Mean Corpuscular Hemoglobin 27.7 pg (28.0-33.3); Mean Corpuscular Volume 95.3 fL (83.0-100.0); Mean Platelet Volume 9.9 fL (9.4-12.4); Monocytes # 0.6 K/mcL (0.0-1.3); Monocytes % 7.5 %; Neutrophils # 5.5 K/mcL (1.6-8.9); Platelet Count 214 K/mcL (140-400); Red Blood Count 3.82 M/mcL (3.82-4.97); Red Cell Distribution Width 14.1 % (11.5-14.5); Segmented Neutrophils % 74.8 %; White Blood Count 7.4 K/mcL (4.3-11.1)
[2019-06-25] MEDS: cefTRIAXone 1,000 MG in Water for inj. (sterile) 10 ML IVP SCH (07:56)
[2019-06-25] MEDS: predniSONE 20 MG TABLET PO SCH (07:56)
[2019-06-25] MEDS: Lisinopril 20 MG TABLET PO SCH (07:56)
[2019-06-25] MEDS: Insulin LISPRO 300 UNITS/3 ML VIAL SQ SCH ×4 (07:56→21:56)
[2019-06-25 08:06] LABS: Calcium 9.2 mg/dL (8.6-10.3); Potassium 4.3 mEq/L (3.5-5.1)
[2019-06-25] MEDS: *HR* OxyCODONE/APAP 10/325 TABLET PO PRN ×3 (09:32→21:54)
[2019-06-25] MEDS: Budesonide/Formoterol 160/4.5 1 PUFF INH IH SCH ×2 (10:39→19:38)
--- NOTE | 2019-06-25 12:53 | Internal Med Progress Note ---
Hospitalist Progress Note - Encounter Date of Encounter: 06/25/19 Time of Encounter: 12:51 - Subjective Interval History: Patient feels somewhat better today. Shortness of breath is improving. Back pain is also well controlled. She denies any nausea or vomiting. Tolerating diet well. Abdomen no abdominal discomfort. No chest pain. - Exam Vitals: Temp Pulse Resp BP Pulse Ox 97.5 F L 73 22 125/86 90 06/25/19 11:47 06/25/19 11:47 06/25/19 11:47 06/25/19 11:47 06/25/19 11:47 Exam: General: Patient is alert, no acute distress, oriented x 3 ENT: Mucous membranes moist Respiratory: Bilateral end expiratory wheezing. Prolonged expiratory phase. Bronchial breath sounds. Cardiovascular: Regular rate and rhythm. s1 and s2 normal No clicks, rubs, gallops, or murmurs. No pedal edema Abdomen: Abdomen is soft, nontender. Bowel sounds are present Musculoskeletal: Spontaneously moving all extremities Skin: warm, dry, intact. Neuro: Alert oriented x 3 normal cranial nerves, no focal deficits - Assessment and Plan (1) Pneumonia Current Visit: Yes Status: Suspected (2) Acute exacerbation of chronic obstructive airways disease Current Visit: Yes Status: Acute (3) Compression fracture of T8 vertebra Current Visit: Yes Status: Acute (4) Morbid obesity with BMI of 40.0-44.9, adult Current Visit: Yes Status: Chronic (5) HTN (hypertension) Current Visit: Yes Status: Chronic (6) Chronic respiratory failure with hypoxia Current Visit: Yes Status: Chronic DVT Prophylaxis: On subcutaneous heparin - Summary of Assessment and Plan Summary of Assessment and Plan: Right lung pneumonia: Improving. Continue current antibiotics. Blood cultures pending. Urine streptococcal and legionella antigens have been negative. COPD: Improving. Continue bronchodilators. Continue oral prednisone. Chronic respiratory failure with hypoxia: Continue O2 supplementation. T5 and T8 compression fractures: Indeterminate age. Pain well controlled. Supportive care. Essential hypertension: Blood pressure is better controlled. Continue lisinopril. Diabetes mellitus type 2: Blood sugars are well controlled. Continue current insulin regimen. Diabetic diet.. Mild acute kidney injury: Now resolved. Elevated BNP: Will obtain 2-D echocardiogram. DVT prophylaxis with subcutaneous heparin Moderate risk for complications - Time Spent with Patient Total time spent is greater than 50% in coordination of care (as documented) at patient's floor/unit and/or counseling patient: Internal Medicine: Result - Labs CBC & Chem 7: 06/25/19 07:03 06/25/19 07:03 Labs: Short CBC 06/24/19 06/25/19 Range/Units 14:10 07:03 WBC 9.7 7.4 (4.3-11.1) K/mcL Hgb 11.6 10.6 L (11.5-15.4) g/dL Hct 38.6 36.4 (35.3-44.9) % Plt Count 249 214 (140-400) K/mcL Neutrophils # 7.8 5.5 (1.6-8.9) K/mcL BMP 06/24/19 06/25/19 14:10 07:03 Sodium 135 L 138 Potassium 4.0 4.3 Chloride 93 L 97 L Carbon Dioxide 36 H 41 H* BUN 19 16 Creatinine 1.24 H 1.14 Glucose 171 H 146 H Calcium 9.1 9.2 Cardiac Enzymes 06/24/19 Range/Units 14:10 Troponin I < 0.03 (< 0.04) ng/mL Urine 06/24/19 Range/Units 15:30 Urine Color Yellow (Yellow) Urine Clarity Clear (Clear) Urine pH 6.0 (5.0-8.0) pH Units Ur Specific [place] 1.013 (1.010-1.025) Urine Protein 30 H (Neg-Trace) mg/dL Urine Glucose (UA) Normal (Normal) mg/dL - Impressions Impressions Chest X-Ray 06/24/19 13:45 IMPRESSION: Findings as above likely related to congestive heart failure and edema. Hazy opacity in the right lung base may represent asymmetric edema, atelectasis, or superimposed infection D/ / Marysol Umanzor MD / Marysol Umanzor MD Interpreting Provider: Marysol Umanzor MD Chest CTA 06/24/19 14:02 IMPRESSION: No thoracic aortic aneurysm. No dissection involving the arch or ascending thoracic aorta. Evaluation of the descending thoracic aorta is limited by poor bolus however no findings to suggest dissection. T8 compression fracture with loss of approximately 50% vertebral body height. Small right pleural effusion. Smooth interlobular septal wall thickening likely related to edema. Patchy opacities in the right lower lobe and right middle lobe which may represent atelectasis or infection. D/ / Marysol Umanzor MD / Marysol Umanzor MD Interpreting Provider: Marysol Umanzor MD Thoracic Spine CT 06/24/19 14:32 IMPRESSION: Moderate compression fracture of T8 of indeterminate age. No retropulsion of the posterior cortex. Mild 10% loss of height of the T5 vertebral body which could represent a compression fracture as well, of indeterminate age. A 7 mm left upper lobe nodule. Comparison with remote studies would be helpful if available. Otherwise, see below recommendation. RECOMMENDATIONS: 7.0 mm solid pulmonary nodule. Recommend a non-contrast Chest CT at 6-12 months, then consider an additional non-contrast Chest CT at 18-24 months. These guidelines do not apply to patients younger than 35 years, immunocompromised patients, and patients with cancer. Follow up in patients with significant comorbidities as clinically warranted. For lung cancer screening, adhere to Lung-RADS guidelines. Reference: Radiology. 2017; 284(1):228-43. D/ / Renuka Renae Cha, MD / Renuka Renae Cha, MD Interpreting Provider: Renuka Renae Cha, MD Consult Discharge Plan - Plan Referrals: Onur Franklin MD [Primary Care Provider] - (1) Pneumonia Qualifiers: Pneumonia type: due to Pneumococcus Laterality: right Lung location: middle lobe of lung Qualified Code(s): J13 - Pneumonia due to Streptococcus pneumoniae (3) Compression fracture of T8 vertebra Qualifiers: Encounter type: initial encounter Qualified Code(s): S22.060A - Wedge compression fracture of T7-T8 vertebra, initial encounter for closed fracture (5) HTN (hypertension) Qualifiers: Hypertension type: essential hypertension Qualified Code(s): I10 - Essential (primary) hypertension
[2019-06-25] MEDS: Azithromycin 500 MG in D5% in Water 250 ML IVPB SCH (15:33)
[2019-06-25] MEDS: Nystatin POWDER 30 GM BOTTLE TP SCH (21:54)
[2019-06-25] MEDS: traZODone 50 MG TABLET PO SCH (21:54)
[2019-06-26] MEDS: Ipratropium/Albuterol Neb 3 ML IH SCH ×5 (03:55→22:35)
[2019-06-26] MEDS: *HR* Heparin 5,000 UNIT/ML VIAL SQ SCH ×2 (06:00→16:43)
[2019-06-26] MEDS: *HR* OxyCODONE/APAP 10/325 TABLET PO PRN ×3 (06:03→17:42)
--- NOTE | 2019-06-26 07:32 | Pain Management Consultation ---
Date of Encounter: 06/26/19 Time of Encounter: 07:30 Assessment and Plan (1) Compression fracture of T8 vertebra Current Visit: Yes Status: Acute The patient has a chronic T8 compression fracture in the setting of chronic lower back pain. She has a years' long history of back pain that is unchanged from her current presentation. She has COPD. Major problems like thoracic / abdominal aneurysm have been ruled out. Recommend the followin. Oral analgesics consistent with her usual home dose and schedule. 2. Physical therapy/occupational therapy consult to treat pain and ascertain her functional capacity. If the patient can sit on the side of the bed, eat, and ambulate to the bathroom with little pain, there is little need for surgery at this moment. 3. Recommend discharge to home if function is at baseline and pain can be easily controlled with oral analgesics and lifestyle modification, finding a comfortable position. 4. I will have my office add her on to my clinic schedule for follow-up in one to two weeks so that we can monitor her progress. 5. Call with any questions, my cellphone number is [phone] The assessment and plan as outlined above was discussed with the patient who expressed understanding and agreement. All questions were answered. Qualifiers: Encounter type: initial encounter Qualified Code(s): S22.060A - Wedge compression fracture of T7-T8 vertebra, initial encounter for closed fracture History of Present Illness Chief complaint: back pain HPI: Ms. Munoz is a 74 year old female who has chronic back pain for which she takes oral pain medication as prescribed by her PCP. The pain in her back has been present in her back for the past 3 to 5 years. Pain became seemingly worse 4 days ago when she sat up in bed. Pain located middle of back, about bra strap l evel. It does not travel into the legs. She denies numbness or weakness in legs. She denies loss of bladder or bowel control. Pain is much better today. She is able to walk to and from bathroom with little assistance. RN in room agrees with that statement. She wishes to go home today. Able to sleep well, able to eat, not limited by pain Past Med Surg Social Fam HX - Past Medical History Medical history: COPD, diabetes, hypertension, thyroid disease Psychiatric history: no psych history - Past Surgical History Surgical History: cholecystectomy - Social History Smoking Status: Former smoker Smokeless Tobacco Status: No Alcohol use: none Drug use: none - Family History Mother Family Member Ethnicity: Non- Living Status: Hx Family Cardiac Disorders: No Hx Family Respiratory Disorders: Yes (TB) Hx Family Cancer: No Hx Family GI Disorders: No Hx Family Endocrine Disorder: No Hx Family Neuromuscular Disorders: No Hx Family Neurologic Disorders: No Hx Family HEENT Disorders: No Hx Family Autoimmune Disorders: No Medications and Allergies Albuterol Neb [Proventil Neb] 2.5 mg IH Q8H PRN 06/25/19 [History] Albuterol Sulfate [Ventolin Hfa] 2 puff IH Q4H PRN 06/25/19 [History] Atorvastatin Calcium [Lipitor] 80 mg PO HS 06/25/19 [History] Calcium Carbonate/Vitamin D3 [Calcium 500 + Vit D Caplet] 1 tab PO BID 06/25/19 [History] Cetirizine HCl [24Hour Allergy] 10 mg PO DAILY 06/25/19 [History] Citalopram Hydrobromide [Citalopram HBr] 20 mg PO DAILY 06/25/19 [History] Fluticasone/Salmeterol [Advair 250-50 Diskus] 1 puff IH BID 06/25/19 [History] Furosemide [Lasix] 40 mg PO DAILY 06/25/19 [History] Ipratropium/Albuterol Sulfate [Combivent Respimat 20-100 Mcg] 1 puff IH QID 06/25/19 [History] Levothyroxine Sodium 175 mcg PO DAILY 06/25/19 [History] Lisinopril [Zestril] 20 mg PO DAILY 06/25/19 [History] Multivitamin [One Daily] 1 tab PO DAILY 06/25/19 [History] Nystatin POWDER [Nystop] 1 appl TP BID 06/25/19 [History] OxyCODONE/APAP 10/325 [Percocet 10/325 MG] 1 tab PO Q6HR PRN 06/25/19 [History] Potassium Chloride [Klor-Con 10] 10 meq PO DAILY 06/25/19 [History] Trazodone HCl 25 mg PO HS 06/25/19 [History] Umeclidinium [place] [Incruse Ellipta] 1 puff IH DAILY PRN 06/25/19 [History] metFORMIN [Glucophage] 500 mg PO BIDWM 06/25/19 [History] Allergy/AdvReac Type Severity Reaction Status Date / Time No Known Allergies Allergy Verified 06/25/19 14:36 Review of Systems - Constitutional Constitutional ROS IM: no photophobia, no phonophobia, no daytime sleepiness, no fever(s), no stops breathing during sleep - EENT Nose, mouth and throat: no headache(s), no neck pain, no neck trauma - Cardiovascular Cardiovascular ROS: no chest pain, no leg edema, no lightheadedness - Respiratory Respiratory: no pain on inspiration, no pain with cough - Gastrointestinal Gastrointestinal: no abdominal pain, no constipation, no diarrhea, no heartburn - Genitourinary Genitourinary ROS: no difficulty urinating, no flank pain, no urinary hesitancy - Musculoskeletal Musculoskeletal ROS: no muscle weakness, no numbness, no radiating pain into limb, no tingling - Integumentary Integumentary: no erythema, no lesions, no swelling - Neurological Neurological ROS: no abnormal gait, no behavioral changes, no focal weakness, no radicular pain - Psychiatric Psychiatric general: no anxiety, no confusion, no depression - Hematologic/Lymphatic Hematologic/Lymphatic pediatric: no easy bleeding, no easy bruising Physical Exam Initial Vital Signs Temp Pulse Resp BP Pulse Ox 98.1 F 95 16 159/88 83 06/24/19 13:33 06/24/19 13:33 06/24/19 13:33 06/24/19 13:33 06/24/19 13:33 - Additional Findings EYES:: pupils equal and round, no myosis. SKIN:: no areas of echymoses or petechiae CARDIOVASCULAR:: regular rate and rhythm, no murmurs PULMONARY:: Quiet, normal respiratory pattern. GASTROINTESTINAL:: protuberant, nontender MUSCULOSKELETAL PALPATION:: paraspinous musculature is not tender to deep palpation in the lumbar area bilaterally. there is some tenderness in the midline thoracic spine just above the thoracolumbar junction. Not severe. STRENGTH:: RIGHT knee extension 5/5 :: LEFT knee extension 5/5 RIGHT knee flexion 5/5 :: LEFT knee flexion 5/5 RIGHT ankle dorsiflexion 5/5 :: LEFT ankle dorsiflexion 5/5 RIGHT ankle plantarflexion 5/5 :: LEFT ankle plantarflexion 5/5 RIGHT great toe dorsiflexion 5/5 :: LEFT great toe dorsiflexion 5/5 RIGHT great toe plantarflexion 5/5 :: LEFT great toe plantarflexion 5/5 NEUROLOGIC SENSATION:: hypesthesia is not noted in lower extremity dermatomes. PSYCHIATRIC:: ORIENTATION:: awake and alert. INSIGHT:: good awareness of illness. AFFECT:: pleasant. Radiology Images Viewed By Me:: 06/24/2019 CT spine shows no aneurysmal dilatation of the descending or ascending aort. There is a chronic T8 compression deformity without impact on the central canal. White blood cell count and platelet count are normal over past two days I have reviewed and agree with information documented in the scribed documentation, ROS, patient medications, allergies, medical history, surgical history, social history, and family history. Results - Labs 06/25/19 07:03 06/25/19 07:03 Abnormal lab results Hgb 10.6 g/dL (11.5-15.4) L 06/25/19 07:03 MCH 27.7 pg (28.0-33.3) L 06/25/19 07:03 MCHC 29.1 g/dL (31.6-35.5) L 06/25/19 07:03 Sodium 135 mEq/L (136-145) L 06/24/19 14:10 Chloride 97 mEq/L (98-107) L 06/25/19 07:03 Carbon Dioxide 41 mEq/L (23-29) H* 06/25/19 07:03 Creatinine 1.24 mg/dL (0.60-1.20) H 06/24/19 14:10 Est GFR ( Amer) 56 (> 60) L 06/25/19 07:03 Est GFR (Non-Af Amer) 46 (> 60) L 06/25/19 07:03 Glucose 146 mg/dL (70-105) H 06/25/19 07:03 POC Glucose 194 mg/dL (70-99) H 06/25/19 19:34 B-Natriuretic Peptide 404 pg/mL (Less than 100) H 06/24/19 14:10 Urine Protein 30 mg/dL (Neg-Trace) H 06/24/19 15:30 Ur Leukocyte Esterase Large (Negative) H 06/24/19 15:30 Urine Microscopic WBC 50-100 per hpf (0-3) H 06/24/19 15:30 Ur Squamous Epith Cells Many per lpf (None-Few) H 06/24/19 15:30 Ur Culture Indicated? YES (NO) A 06/24/19 15:30 Diabetes panel 06/25/19 Range/Units 07:03 Sodium 138 (136-145) mEq/L Potassium 4.3 (3.5-5.1) mEq/L Chloride 97 L (98-107) mEq/L Carbon Dioxide 41 H* (23-29) mEq/L BUN 16 (8-23) mg/dL Creatinine 1.14 (0.60-1.20) mg/dL Glucose 146 H (70-105) mg/dL Calcium 9.2 (8.6-10.3) mg/dL Calcium panel 06/25/19 Range/Units 07:03 Calcium 9.2 (8.6-10.3) mg/dL Pituitary panel 06/25/19 Range/Units 07:03 Sodium 138 (136-145) mEq/L Potassium 4.3 (3.5-5.1) mEq/L Chloride 97 L (98-107) mEq/L Carbon Dioxide 41 H* (23-29) mEq/L BUN 16 (8-23) mg/dL Creatinine 1.14 (0.60-1.20) mg/dL Glucose 146 H (70-105) mg/dL Calcium 9.2 (8.6-10.3) mg/dL Adrenal panel 06/25/19 Range/Units 07:03 Sodium 138 (136-145) mEq/L Potassium 4.3 (3.5-5.1) mEq/L Chloride 97 L (98-107) mEq/L Carbon Dioxide 41 H* (23-29) mEq/L BUN 16 (8-23) mg/dL Creatinine 1.14 (0.60-1.20) mg/dL Glucose 146 H (70-105) mg/dL Calcium 9.2 (8.6-10.3) mg/dL All other labs normal. Consult Discharge Plan - Plan Referrals: Onur Franklin MD [Primary Care Provider] -
[2019-06-26] MEDS: Insulin LISPRO 300 UNITS/3 ML VIAL SQ SCH ×4 (08:07→20:41)
[2019-06-26] MEDS: cefTRIAXone 1,000 MG in Water for inj. (sterile) 10 ML IVP SCH (08:07)
[2019-06-26] MEDS: predniSONE 20 MG TABLET PO SCH (08:08)
[2019-06-26] MEDS: Nystatin POWDER 30 GM BOTTLE TP SCH ×2 (08:08→20:38)
[2019-06-26] MEDS: Furosemide 40 MG TABLET PO SCH (08:08)
[2019-06-26] MEDS: Lisinopril 20 MG TABLET PO SCH (08:08)
[2019-06-26] MEDS: Azithromycin 250 MG TABLET PO SCH (09:13)
[2019-06-26] MEDS: Budesonide/Formoterol 160/4.5 1 PUFF INH IH SCH ×3 (10:00→22:35)
--- NOTE | 2019-06-26 12:47 | Electrocardiograph Report ---
[address] [address] Test Date: 2019-06-24 Pat Name: Ale Munoz Department: EXAM14 Room: 2A24 Gender: F Excellence Consultant: : 1945 Requested By: [id number] Order Number: [id number] Reading MD: Kennedy Barros Measurements Intervals [place] Rate: 87 P: 72 MA: 174 QRS: 100 QRSD: 104 T: 76 QT: 431 QTc: 519 Interpretive Statements Sinus rhythm Atrial premature complexes Baseline artifact Electronically Signed On 06-26-2019 12:46:29 EDT by Kennedy Barros
--- NOTE | 2019-06-26 14:25 | Internal Med Progress Note ---
Hospitalist Progress Note - Encounter Date of Encounter: 06/26/19 Time of Encounter: 14:24 - Subjective Interval History: Patient reports that she is continuing to improve. Pain in her back is controlled with Percocet. Tolerating diet well. Continues to have cough although it is not as severe as before. Denies any chest pain. Shortness of breath improving. - Exam Vitals: Temp Pulse Resp BP Pulse Ox 97.6 F 88 22 131/83 98 06/26/19 11:16 06/26/19 11:16 06/26/19 11:16 06/26/19 11:16 06/26/19 11:16 Exam: General: Patient is alert, mild distress, oriented x 3 ENT: Mucous membranes moist Respiratory: Bilateral end expiratory wheezing. Prolonged expiratory phase. Bronchial breath sounds. Cardiovascular: Regular rate and rhythm. s1 and s2 normal No clicks, rubs, gallops, or murmurs. No pedal edema Abdomen: Abdomen is soft, nontender. Bowel sounds are present Musculoskeletal: Spontaneously moving all extremities , tenderness in mid back region over the lower thoracic spine Skin: warm, dry, intact. Neuro: Alert oriented x 3 normal cranial nerves, no focal deficits - Assessment and Plan (1) Pneumonia Current Visit: Yes Status: Suspected (2) Acute exacerbation of chronic obstructive airways disease Current Visit: Yes Status: Acute (3) Compression fracture of T8 vertebra Current Visit: Yes Status: Acute (4) Morbid obesity with BMI of 40.0-44.9, adult Current Visit: Yes Status: Chronic (5) HTN (hypertension) Current Visit: Yes Status: Chronic (6) Chronic respiratory failure with hypoxia Current Visit: Yes Status: Chronic (7) Aortic stenosis Current Visit: Yes Status: Acute (8) Mitral stenosis Current Visit: Yes Status: Acute (9) Pulmonary hypertension Current Visit: Yes Status: Chronic (10) Congestive heart failure Current Visit: Yes Status: Chronic DVT Prophylaxis: On subcutaneous heparin - Summary of Assessment and Plan Summary of Assessment and Plan: Right lung pneumonia: Patient continues to improve. Continue antibiotics. Will transition to oral regimen. COPD: Continue bronchodilators and steroids. Continue Symbicort. Chronic respiratory failure with hypoxia: Continue O2 supplementation. T5 and T8 compression fractures: Pain management has evaluated patient. Recommend physical therapy and outpatient follow-up. Essential hypertension: On lisinopril. Blood pressure remains elevated. We will start low-dose beta bhavana. Diabetes mellitus type 2: Blood sugars remain elevated. Will add long-acting insulin. Diabetic diet. Mild acute kidney injury: Now resolved. Chronic diastolic congestive heart failure: Continue Lasix. Echocardiogram done today showed mild left ventricular diastolic dysfunction. Moderate to severe aortic stenosis/moderate mitral stenosis and severe pulmonary hypertension: We will consult cardiology to evaluate patient and optimize medications. Patient has not seen cardiology and does not follow up with anyone here. DVT prophylaxis with subcutaneous heparin Moderate risk for complications - Time Spent with Patient Total time spent is greater than 50% in coordination of care (as documented) at patient's floor/unit and/or counseling patient: Internal Medicine: Result - Labs CBC & Chem 7: 06/25/19 07:03 06/25/19 07:03 - Impressions Impressions Echocardiogram 06/26/19 13:01 Impressions: LVEF 65-70%. Moderate concentric left ventricular hypertrophy. Mild left ventricular diastolic dysfunction. Normal right ventricular structure and function. Moderately dilated left atrium. Moderate-severe aortic stenosis, V1/V2 1.46/4.46 m/s, MG 38 mmHg. Moderate mitral stenosis, mean transmitral gradient is 8 mmHg. Mild mitral regurgitation. Mild tricuspid regurgitation. Severe pulmonary hypertension. Ordering physician notified via [employer]. Left Ventricular Wall Motion: Rest Echo Findings All wall segments showed normal motion. Findings: Study Quality * Technically adequate exam. ECG Findings * Normal sinus rhythm. Left Ventricle * LVEF 65-70%. * Normal LV chamber size and systolic function. * Moderate concentric left ventricular hypertrophy. * Mild left ventricular diastolic dysfunction. Right Ventricle * Normal right ventricular structure and function. Left Atrium * Moderately dilated left atrium. Right Atrium * Normal right atrial size. Interatrial Septum * Interatrial septum not well evaluated. Aortic Valve * Severely calcified aortic valve leaflets. * Moderate-severe aortic stenosis. * V1/V2 1.46/4.46 m/s, MG 38 mmHg, LVOT 2cm, PAOLO 0.99 cm\S\2. * No aortic regurgitation. Mitral Valve * Moderate mitral annular calcification * Mildly calcified mitral valve leaflets. * Moderate mitral stenosis. * Mean transmitral gradient is 8 mmHg, HR not documented, likely 70s. * Mild mitral regurgitation. Tricuspid Valve * Normal tricuspid valve structure. * No tricuspid stenosis. * Mild tricuspid regurgitation. * Estimated RVSP is 71 mmHg. * Estimated RA pressure is 3 mmHg. * Severe pulmonary hypertension. Pulmonic Valve * Pulmonic valve is not well visualized. * No pulmonic stenosis. * No pulmonic regurgitation. Aorta * Normally sized aortic root. Pericardium * The pericardium appears normal. IVC * The IVC is not dilated. * > 50% respiratory change Consult Discharge Plan - Plan Referrals: Onur Franklin MD [Primary Care Provider] - 06/30/19 9:45 am (1) Pneumonia Qualifiers: Pneumonia type: due to Pneumococcus Laterality: right Lung location: middle lobe of lung Qualified Code(s): J13 - Pneumonia due to Streptococcus pneumoniae (3) Compression fracture of T8 vertebra Qualifiers: Encounter type: initial encounter Qualified Code(s): S22.060A - Wedge compr ession fracture of T7-T8 vertebra, initial encounter for closed fracture (5) HTN (hypertension) Qualifiers: Hypertension type: essential hypertension Qualified Code(s): I10 - Essential (primary) hypertension (7) Aortic stenosis Qualifiers: Cardiac valve disease etiology: etiology unspecified Qualified Code(s): I35.0 - Nonrheumatic aortic (valve) stenosis (8) Mitral stenosis Qualifiers: Cardiac valve disease etiology: etiology unspecified Qualified Code(s): I05.0 - Rheumatic mitral stenosis (10) Congestive heart failure Qualifiers: Heart failure type: diastolic Heart failure chronicity: chronic Qualified Code(s): I50.32 - Chronic diastolic (congestive) heart failure
[2019-06-26] MEDS: traZODone 50 MG TABLET PO SCH (20:37)
[2019-06-27] MEDS: Ipratropium/Albuterol Neb 3 ML IH SCH ×3 (03:36→16:07)
[2019-06-27] MEDS: *HR* OxyCODONE/APAP 10/325 TABLET PO PRN ×3 (04:36→16:41)
[2019-06-27] MEDS: *HR* Heparin 5,000 UNIT/ML VIAL SQ SCH (06:11)
[2019-06-27] MEDS: Insulin LISPRO 300 UNITS/3 ML VIAL SQ SCH ×3 (07:50→17:01)
[2019-06-27] MEDS: predniSONE 20 MG TABLET PO SCH (07:52)
[2019-06-27] MEDS: Azithromycin 250 MG TABLET PO SCH (07:53)
[2019-06-27] MEDS: Furosemide 40 MG TABLET PO SCH (07:53)
[2019-06-27] MEDS: Lisinopril 20 MG TABLET PO SCH (07:53)
[2019-06-27] MEDS: cefTRIAXone 1,000 MG in Water for inj. (sterile) 10 ML IVP SCH (07:55)
--- NOTE | 2019-06-27 09:09 | Cardiology Consult Note ---
<Yunier Miller - Last Filed: 06/27/19 12:43> Date of Encounter: 06/27/19 Time of Encounter: 09:05 Assessment and Plan (1) Aortic stenosis Current Visit: Yes Status: Acute TTE reviewed with patient. EF preserved. Moderate to severe aortic stenosis, moderate mitral stenosis, severe PAH seen. Discussed with Dr. Finney, is more in the severe range. Close out-pt f/u recommended to discuss further work-up and TAVR referral. Qualifiers: Cardiac valve disease etiology: etiology unspecified Qualified Code(s): I35.0 - Nonrheumatic aortic (valve) stenosis (2) Mitral stenosis Current Visit: Yes Status: Acute Qualifiers: Cardiac valve disease etiology: etiology unspecified Qualified Code(s): I05.0 - Rheumatic mitral stenosis (3) Congestive heart failure Current Visit: Yes Status: Chronic Mild acute on chronic HFpEF with multivalvular disease. CXR with possible edema vs infection. BNP 400. on lasix. Pt denies orthopnea, PND, or edema currently. SOB improved. Low sodium diet and strict I&O. Qualifiers: Heart failure type: diastolic Heart failure chronicity: chronic Qualified Code(s): I50.32 - Chronic diastolic (congestive) heart failure Discussion w patient/family: The assessment and plan as outlined above was discussed with the patient and/or family members who expressed understanding and agreement. All questions were answered. Thank you for involving us in the care of your patient. Please call with any questions. History of Present Illness Consult date: 06/27/19 Requesting physician: Robbin Marc Consult reason: valvular heart disease Chief complaint: SOB, back pain History of present illness: Ms. Munoz is a 74 year old female with past medical history of HTN, DM, COPD, chronic respiratory failure on home O2 who presents with severe back pain and increased SOB for 2 days. She is found to have T8 and possible T5 compression fracture. CXR also shows concern for CHF vs PNA. TTE completed shows EF preserved with moderate to severe aortic stenosis, moderate mitral stenosis, and severe PAH. Cardiology consulted for further recommendation for valvular heart disease. Patient denies prior history of valvular heart disease. Denies weight gain, edema, or orthopnea. Denies having sputum production. Denies fever or chills. Reports fall out of bed recently. Denies syncope or dizziness. Past Med Surg Social Fam HX - Past Medical History Medical history: COPD, diabetes, hypertension, thyroid disease Psychiatric history: no psych history - Past Surgical History Surgical History: cholecystectomy - Social History Smoking Status: Former smoker Smokeless Tobacco Status: No Alcohol use: none Drug use: none - Family History Mother Family Member Ethnicity: Non- Living Status: Hx Family Cardiac Disorders: No Hx Family Respiratory Disorders: Yes (TB) Hx Family Cancer: No Hx Family GI Disorders: No Hx Family Endocrine Disorder: No Hx Family Neuromuscular Disorders: No Hx Family Neurologic Disorders: No Hx Family HEENT Disorders: No Hx Family Autoimmune Disorders: No Medications and Allergies Albuterol Neb [Proventil Neb] 2.5 mg IH Q8H PRN 06/25/19 [History] Albuterol Sulfate [Ventolin Hfa] 2 puff IH Q4H PRN 06/25/19 [History] Atorvastatin Calcium [Lipitor] 80 mg PO HS 06/25/19 [History] Calcium Carbonate/Vitamin D3 [Calcium 500 + Vit D Caplet] 1 tab PO BID 06/25/19 [History] Cetirizine HCl [24Hour Allergy] 10 mg PO DAILY 06/25/19 [History] Citalopram Hydrobromide [Citalopram HBr] 20 mg PO DAILY 06/25/19 [History] Fluticasone/Salmeterol [Advair 250-50 Diskus] 1 puff IH BID 06/25/19 [History] Furosemide [Lasix] 40 mg PO DAILY 06/25/19 [History] Ipratropium/Albuterol Sulfate [Combivent Respimat 20-100 Mcg] 1 puff IH QID 06/25/19 [History] Levothyroxine Sodium 175 mcg PO DAILY 06/25/19 [History] Lisinopril [Zestril] 20 mg PO DAILY 06/25/19 [History] Multivitamin [One Daily] 1 tab PO DAILY 06/25/19 [History] Nystatin POWDER [Nystop] 1 appl TP BID 06/25/19 [History] OxyCODONE/APAP 10/325 [Percocet 10/325 MG] 1 tab PO Q6HR PRN 06/25/19 [History] Potassium Chloride [Klor-Con 10] 10 meq PO DAILY 06/25/19 [History] Trazodone HCl 25 mg PO HS 06/25/19 [History] Umeclidinium [place] [Incruse Ellipta] 1 puff IH DAILY PRN 06/25/19 [History] metFORMIN [Glucophage] 500 mg PO BIDWM 06/25/19 [History] Azithromycin [Zithromax] 500 mg PO DAILY #6 tablet 06/27/19 [Rx] Cefdinir [Omnicef] 300 mg PO BID #10 capsule 06/27/19 [Rx] Allergy/AdvReac Type Severity Reaction Status Date / Time No Known Allergies Allergy Verified 06/25/19 14:36 All Systems Review: The remainder of the systems were reviewed and are negative Physical Examination Vital Signs, Last 4 Hours Temp Pulse Resp BP Pulse Ox 06/27/19 07:17 97.9 F 69 18 138/77 91 General: Conversant, No Apparent Distress HEENT: Atraumatic, Normocephaly, Mucus Membranes Moist Neck: No JVD, Normal carotid pulses Cardiac: Reg Rate and Rhythm, Normal S1 and S2, Other (3/6 systolic murmur) Lungs: No Wheeze, Rales, Rhonchi, Other (diminished right lung base) Neuro: Alert and responsive, No focal deficits noted Abdomen: Soft, Non-Tender Skin: No rashes noted on visualized skin Musculoskeletal: No Chest Wall Tenderness Extremities: No Clubbing, No Cyanosis, No Edema, Normal Pulses Results 06/25/19 07:03 06/25/19 07:03 Chest X-Ray 06/24/19 13:45 IMPRESSION: Findings as above likely related to congestive heart failure and edema. Hazy opacity in the right lung base may represent asymmetric edema, atelectasis, or superimposed infection D/ / Marysol Umanzor MD / Marysol Umanzor MD Interpreting Provider: Marysol Umanzor MD Chest CTA 06/24/19 14:02 IMPRESSION: No thoracic aortic aneurysm. No dissection involving the arch or ascending thoracic aorta. Evaluation of the descending thoracic aorta is limited by poor bolus however no findings to suggest dissection. T8 compression fracture with loss of approximately 50% vertebral body height. Small right pleural effusion. Smooth interlobular septal wall thickening likely related to edema. Patchy opacities in the right lower lobe and right middle lobe which may represent atelectasis or infection. D/ / Marysol Umanzor MD / Marysol Umanzor MD Interpreting Provider: Marysol Umanzor MD Thoracic Spine CT 06/24/19 14:32 IMPRESSION: Moderate compression fracture of T8 of indeterminate age. No retropulsion of the posterior cortex. Mild 10% loss of height of the T5 vertebral body which could represent a compression fracture as well, of indeterminate age. A 7 mm left upper lobe nodule. Comparison with remote studies would be helpful if available. Otherwise, see below recommendation. RECOMMENDATIONS: 7.0 mm solid pulmonary nodule. Recommend a non-contrast Chest CT at 6-12 months, then consider an additional non-contrast Chest CT at 18-24 months. These guidelines do not apply to patients younger than 35 years, immunocompromised patients, and patients with cancer. Follow up in patients with significant comorbidities as clinically warranted. For lung cancer screening, adhere to Lung-RADS guidelines. Reference: Radiology. 2017; 284(1):228-43. D/ / eRnuka Renae Cha, MD / Renuka Renae Cha, MD Interpreting Provider: Renuka Renae Cha, MD Echocardiogram 06/26/19 13:01 Impressions: LVEF 65-70%. Moderate concentric left ventricular hypertrophy. Mild left ventricular diastolic dysfunction. Normal right ventricular structure and function. Moderately dilated left atrium. Moderate-severe aortic stenosis, V1/V2 1.46/4.46 m/s, MG 38 mmHg. Moderate mitral stenosis, mean transmitral gradient is 8 mmHg. Mild mitral regurgitation. Mild tricuspid regurgitation. Severe pulmonary hypertension. Ordering physician notified via [employer]. Left Ventricular Wall Motion: Rest Echo Findings All wall segments showed normal motion. Findings: Study Quality * Technically adequate exam. ECG Findings * Normal sinus rhythm. Left Ventricle * LVEF 65-70%. * Normal LV chamber size and systolic function. * Moderate concentric left ventricular hypertrophy. * Mild left ventricular diastolic dysfunction. Right Ventricle * Normal right ventricular structure and function. Left Atrium * Moderately dilated left atrium. Right Atrium * Normal right atrial size. Interatrial Septum * Interatrial septum not well evaluated. Aortic Valve * Severely calcified aortic valve leaflets. * Moderate-severe aortic stenosis. * V1/V2 1.46/4.46 m/s, MG 38 mmHg, LVOT 2cm, PAOLO 0.99 cm\S\2. * No aortic regurgitation. Mitral Valve * Moderate mitral annular calcification * Mildly calcified mitral valve leaflets. * Moderate mitral stenosis. * Mean transmitral gradient is 8 mmHg, HR not documented, likely 70s. * Mild mitral regurgitation. Tricuspid Valve * Normal tricuspid valve structure. * No tricuspid stenosis. * Mild tricuspid regurgitation. * Estimated RVSP is 71 mmHg. * Estimated RA pressure is 3 mmHg. * Severe pulmonary hypertension. Pulmonic Valve * Pulmonic valve is not well visualized. * No pulmonic stenosis. * No pulmonic regurgitation. Aorta * Normally sized aortic root. Pericardium * The pericardium appears normal. IVC * The IVC is not dilated. * > 50% respiratory change - Imaging and Cardiology Echo: report reviewed - EKG Interpretation EKG results cardiology: personally reviewed Consult Discharge Plan - Plan Instructions: Azithromycin (By mouth), Cefdinir (By mouth), Chronic Obstructive Pulmonary Disease (DC) Referrals: Karan Mccarthy DO [Partnered Physician] - (T8 Compression fracture) Onur Franklin MD [Primary Care Provider] - 06/30/19 9:45 am (Please follow up as schedule...) Sherrill Finney DO [Partnered Physician] - (in 1 week Cardio will call patient for an appt.) Prescriptions: Cefdinir [Omnicef] 300 mg PO BID #10 capsule Azithromycin [Zithromax] 500 mg PO DAILY #6 tablet <Sherrill Finney - Last Filed: 06/27/19 16:24> Date of Encounter: 06/27/19 - Attending Attestation I examined this patient and my medical decision-making was reviewed with the AUTO TECHNICIAN MECHANIC. I agree with the documented findings, disposition and treatment plan as described. Assessment and Plan Discussion w patient/family: The assessment and plan as outlined above was discussed with the patient and/or family members who expressed understanding and agreement. All questions were answered. Thank you for involving us in the care of your patient. Please call with any questions. History of Present Illness History of present illness: Ms. Archey is a 74 year old female All Systems Review: The remainder of the systems were reviewed and are negative Results 06/25/19 07:03 06/25/19 07:03
[2019-06-27] MEDS: Nystatin POWDER 30 GM BOTTLE TP SCH (09:36)
[2019-06-27] MEDS: Budesonide/Formoterol 160/4.5 1 PUFF INH IH SCH (10:02)
[2019-06-27 11:49] VITALS: BP 130/72
--- NOTE | 2019-06-27 14:32 | Discharge Summary ---
- NOTES TO OUTPATIENT PROVIDER Notes to Outpatient Provider: Patient with a history of COPD, diabetes, hypertension and thyroid disease was hospitalized here with pneumonia and compression fracture involving T8 vertebra. Patient was treated with IV antibiotics and pain medications. Her symptoms have now improved. Patient's back pain is well controlled. She was evaluated by pain management and recommended physical therapy and outpatient follow-up. Patient was evaluated by physical therapy here and recommended home health. Her blood cultures have been negative. She is clinically stable for discharge. During her workup, patient underwent a 2-D echocardiogram which showed severe aortic stenosis and moderate mitral stenosis. Cardiology was consulted and recommended close outpatient follow-up and possible TAVR as outpatient. Will arrange for this. Patient also has severe pulmonary hypertension and chronic respiratory failure with hypoxia. She is already on home oxygen and also has home BiPAP machine. Orders not resulted at time of discharge: Pending orders 06/24/19 14:49 Culture,Blood [BC] Stat Date of Encounter: 06/27/19 Time of Encounter: 14:25 - Discharge Diagnosis (1) Pneumonia Priority: Primary Status: Suspected Qualifiers: Pneumonia type: due to Pneumococcus Laterality: right Lung location: middle lobe of lung Qualified Code(s): J13 - Pneumonia due to Streptococcus pneumoniae (2) Acute exacerbation of chronic obstructive airways disease Priority: Secondary Status: Acute (3) Compression fracture of T8 vertebra Priority: Secondary Status: Acute Qualifiers: Encounter type: initial encounter Qualified Code(s): S22.060A - Wedge compression fracture of T7-T8 vertebra, initial encounter for closed fracture (4) Morbid obesity with BMI of 40.0-44.9, adult Priority: Secondary Status: Chronic (5) HTN (hypertension) Priority: Secondary Status: Chronic Qualifiers: Hypertension type: essential hypertension Qualified Code(s): I10 - Essential (primary) hypertension (6) Chronic respiratory failure with hypoxia Priority: Secondary Status: Chronic (7) Aortic stenosis Priority: Secondary Status: Acute Qualifiers: Cardiac valve disease etiology: etiology unspecified Qualified Code(s): I35.0 - Nonrheumatic aortic (valve) stenosis (8) Mitral stenosis Priority: Secondary Status: Acute Qualifiers: Cardiac valve disease etiology: etiology unspecified Qualified Code(s): I05.0 - Rheumatic mitral stenosis (9) Pulmonary hypertension Priority: Secondary Status: Chronic (10) Congestive heart failure Priority: Secondary Status: Chronic Qualifiers: Heart failure type: diastolic Heart failure chronicity: chronic Qualified Code(s): I50.32 - Chronic diastolic (congestive) heart failure Hospital course: Ms. Munoz is a 74 year old female Patient with a history of COPD, diabetes, hypertension and thyroid disease was hospitalized here with pneumonia and com pression fracture involving T8 vertebra. Patient was treated with IV antibiotics and pain medications. Her symptoms have now improved. Patient's back pain is well controlled. She was evaluated by pain management and recommended physical therapy and outpatient follow-up. Patient was evaluated by physical therapy here and recommended home health. Her blood cultures have been negative. She is clinically stable for discharge. During her workup, patient underwent a 2-D echocardiogram which showed severe aortic stenosis and moderate mitral stenosis. Cardiology was consulted and recommended close outpatient follow-up and possible TAVR as outpatient. Will arrange for this. Patient also has severe pulmonary hypertension and chronic respiratory failure with hypoxia. She is already on home oxygen and also has home BiPAP machine. Discharge discussed with: patient, family, nurse, residential sales consultant - Time Spent with Patient Total time spent providing and/or coordinating discharge services: Time spent: Greater than 30 minutes (40 min) - Discharge Medications Prescriptions: New Azithromycin [Zithromax] 500 mg PO DAILY #6 tablet Cefdinir [Omnicef] 300 mg PO BID #10 capsule Continued Albuterol Sulfate [Ventolin Hfa] 2 puff IH Q4H PRN PRN Reason: Shortness Of Breath Atorvastatin Calcium [Lipitor] 80 mg PO HS Calcium Carbonate/Vitamin D3 [Calcium 500 + Vit D Caplet] 1 tab PO BID Cetirizine HCl [24Hour Allergy] 10 mg PO DAILY Citalopram Hydrobromide [Citalopram HBr] 20 mg PO DAILY Fluticasone/Salmeterol [Advair 250-50 Diskus] 1 puff IH BID Furosemide [Lasix] 40 mg PO DAILY Ipratropium/Albuterol Sulfate [Combivent Respimat 20-100 Mcg] 1 puff IH QID Levothyroxine Sodium 175 mcg PO DAILY Lisinopril [Zestril] 20 mg PO DAILY metFORMIN [Glucophage] 500 mg PO BIDWM Multivitamin [One Daily] 1 tab PO DAILY Nystatin POWDER [Nystop] 1 appl TP BID OxyCODONE/APAP 10/325 [Percocet 10/325 MG] 1 tab PO Q6HR PRN PRN Reason: Pain Potassium Chloride [Klor-Con 10] 10 meq PO DAILY Trazodone HCl 25 mg PO HS Umeclidinium [place] [Incruse Ellipta] 1 puff IH DAILY PRN PRN Reason: Shortness Of Breath Albuterol Neb [Proventil Neb] 2.5 mg IH Q8H PRN PRN Reason: Shortness Of Breath Home Medications: Albuterol Neb [Proventil Neb] 2.5 mg IH Q8H PRN 06/25/19 [History] Albuterol Sulfate [Ventolin Hfa] 2 puff IH Q4H PRN 06/25/19 [History] Atorvastatin Calcium [Lipitor] 80 mg PO HS 06/25/19 [History] Calcium Carbonate/Vitamin D3 [Calcium 500 + Vit D Caplet] 1 tab PO BID 06/25/19 [History] Cetirizine HCl [24Hour Allergy] 10 mg PO DAILY 06/25/19 [History] Citalopram Hydrobromide [Citalopram HBr] 20 mg PO DAILY 06/25/19 [History] Fluticasone/Salmeterol [Advair 250-50 Diskus] 1 puff IH BID 06/25/19 [History] Furosemide [Lasix] 40 mg PO DAILY 06/25/19 [History] Ipratropium/Albuterol Sulfate [Combivent Respimat 20-100 Mcg] 1 puff IH QID 06/25/19 [History] Levothyroxine Sodium 175 mcg PO DAILY 06/25/19 [History] Lisinopril [Zestril] 20 mg PO DAILY 06/25/19 [History] Multivitamin [One Daily] 1 tab PO DAILY 06/25/19 [History] Nystatin POWDER [Nystop] 1 appl TP BID 06/25/19 [History] OxyCODONE/APAP 10/325 [Percocet 10/325 MG] 1 tab PO Q6HR PRN 06/25/19 [History] Potassium Chloride [Klor-Con 10] 10 meq PO DAILY 06/25/19 [History] Trazodone HCl 25 mg PO HS 06/25/19 [History] Umeclidinium [place] [Incruse Ellipta] 1 puff IH DAILY PRN 06/25/19 [History] metFORMIN [Glucophage] 500 mg PO BIDWM 06/25/19 [History] Azithromycin [Zithromax] 500 mg PO DAILY #6 tablet 06/27/19 [Rx] Cefdinir [Omnicef] 300 mg PO BID #10 capsule 06/27/19 [Rx] Allergies/Adverse Reactions: Allergy/AdvReac Type Severity Reaction Status Date / Time No Known Allergies Allergy Verified 06/25/19 14:36 Date of admission: 06/25/19 16:01 Primary care physician: Onur Franklin MD Consults: 06/24/19 16:57 Consult to Occupational Therapy [CONS] Routine Comment: Evaluate, develop and implement POC Reason for Consult: Vertebral comp fracture Does patient have active BEDREST order?: No Is patient medically & hemodynamically stable?: Yes Consult to Physical Therapy [CONS] Routine Comment: Evaluate, develop and implement POC Reason for Consult: Vertebral comp fracture Does patient have active BEDREST order?: No Is patient medically & hemodynamically stable?: Yes 06/26/19 11:14 Consult to Nurse Navigator [CONS] Routine Comment: pn, copd 06/26/19 14:22 Consult to Cardiology [CONS] Routine Comment: Consulting Provider: [facility] [place] Reason for Consult: Moderate to severe / Moderate MS/ Pulm HTN. Worsened since 2015 Call Completed: No 06/27/19 12:33 Consult to Nutrition [CONS] Routine Comment: Consulting Provider: NUTRITION Reason for Dietary Consult: Diet Education Other:: Needs examples of appropriate and inappropriate dietary intake Discharging clinician: Robbin Marc Anticipated date of discharge: 06/27/19 - Constitutional Vitals: Temp Pulse Resp BP Pulse Ox 98.0 F 84 17 130/72 93 06/27/19 11:46 06/27/19 11:46 06/27/19 11:46 06/27/19 11:46 06/27/19 10:04 Exam: General: Patient is alert, no acute distress, oriented x 3 Respiratory: Prolonged expiratory phase, bronchial breath sounds. Cardiovascular: Regular rate and rhythm. s1 and s2 normal systolic murmur. No pedal edema Abdomen: Abdomen is soft, nontender. Bowel sounds are present Musculoskeletal: Spontaneously moving all extremities Skin: warm, dry, intact. Neuro: Alert oriented x 3 normal cranial nerves, no focal deficits - Patient Status Disposition: Home Health Service Condition: Fair Functional capacity at discharge: uses cane/walker Overall status at discharge: patient is progressing back to baseline - Discharge Instructions Instructions: Chronic Obstructive Pulmonary Disease (DC) Follow Up With: Onur Franklin MD [Primary Care Provider] - 06/30/19 9:45 am Sherrill Finney DO [Partnered Physician] - (in 1 week) Karan Mccarthy DO [Partnered Physician] - (T8 Compression fracture) - Diet and Activity Activity: as per physical therapy, increase activity as tolerated, wear oxygen at all times Diet: low fat, low cholesterol, low salt diet, other (Fluid restriction to 1.5 L per day)
--- NOTE | 2019-06-27 14:47 | Physician Discharge Referral ---
Home Health/Hosp Referral Info Transfer to: Home Health Provider in Charge Post Discharge: PCP - Diagnosis (1) Pneumonia Priority: Primary Status: Suspected (2) Acute exacerbation of chronic obstructive airways disease Priority: Secondary Status: Acute (3) Compression fracture of T8 vertebra Priority: Secondary Status: Acute (4) Morbid obesity with BMI of 40.0-44.9, adult Priority: Secondary Status: Chronic (5) HTN (hypertension) Priority: Secondary Status: Chronic (6) Chronic respiratory failure with hypoxia Priority: Secondary Status: Chronic (7) Aortic stenosis Priority: Secondary Status: Acute (8) Mitral stenosis Priority: Secondary Status: Acute (9) Pulmonary hypertension Priority: Secondary Status: Chronic (10) Congestive heart failure Priority: Secondary Status: Chronic - Respiratory Orders Oxygen / L per min (2-3) Smoking Cessation: Smoking cessation has been advised. For more information, call the [place] Tobacco Quit Line at 7-004-HHAQ-NOW. - Diet/Nutrition Diet/Nutrition Orders: Cardiac, No Concentrated Sweets - Activity Activity Orders: Walker - Services Needed Following services are medically necessary services: Nursing, Home Health Aide, Physical Therapy, Occupational Therapy - Transfer Medications Prescriptions: Cefdinir [Omnicef] 300 mg PO BID #10 capsule Azithromycin [Zithromax] 500 mg PO DAILY #6 tablet Home Medications: Albuterol Neb [Proventil Neb] 2.5 mg IH Q8H PRN 06/25/19 [History] Albuterol Sulfate [Ventolin Hfa] 2 puff IH Q4H PRN 06/25/19 [History] Atorvastatin Calcium [Lipitor] 80 mg PO HS 06/25/19 [History] Calcium Carbonate/Vitamin D3 [Calcium 500 + Vit D Caplet] 1 tab PO BID 06/25/19 [History] Cetirizine HCl [24Hour Allergy] 10 mg PO DAILY 06/25/19 [History] Citalopram Hydrobromide [Citalopram HBr] 20 mg PO DAILY 06/25/19 [History] Fluticasone/Salmeterol [Advair 250-50 Diskus] 1 puff IH BID 06/25/19 [History] Furosemide [Lasix] 40 mg PO DAILY 06/25/19 [History] Ipratropium/Albuterol Sulfate [Combivent Respimat 20-100 Mcg] 1 puff IH QID 06/25/19 [History] Levothyroxine Sodium 175 mcg PO DAILY 06/25/19 [History] Lisinopril [Zestril] 20 mg PO DAILY 06/25/19 [History] Multivitamin [One Daily] 1 tab PO DAILY 06/25/19 [History] Nystatin POWDER [Nystop] 1 appl TP BID 06/25/19 [History] OxyCODONE/APAP 10/325 [Percocet 10/325 MG] 1 tab PO Q6HR PRN 06/25/19 [History] Potassium Chloride [Klor-Con 10] 10 meq PO DAILY 06/25/19 [History] Trazodone HCl 25 mg PO HS 06/25/19 [History] Umeclidinium [place] [Incruse Ellipta] 1 puff IH DAILY PRN 06/25/19 [History] metFORMIN [Glucophage] 500 mg PO BIDWM 06/25/19 [History] Azithromycin [Zithromax] 500 mg PO DAILY #6 tablet 06/27/19 [Rx] Cefdinir [Omnicef] 300 mg PO BID #10 capsule 06/27/19 [Rx] Allergies/Adverse Reactions: Allergy/AdvReac Type Severity Reaction Status Date / Time No Known Allergies Allergy Verified 06/25/19 14:36 Certification: Further, I certify that my clinical findings support that this patient is homebound (i.e. absences from home require considerable and taxing effort and are for medical reasons or anabaptist services or infrequently or short duration when for other reasons) because: Homebound Reason: Patient requires assistance of a person or device to safely leave home, Severity of cardiac or pulmonary status limits activity tolerance Attestation: My signature below is to certify that this patient is under my care and that I, or nurse practitioner, or a physician's produce assistant working with me, has a [id number] encounter with this patient.
== END 2019-06-27 18:01 | disposition home health service (06) | DRG 193 ==
LOC: EMEROOARM 13:24 → 2ANU 13:24
PROVIDERS: ADMIT Internal Medicine Nephrology; ATTEND Internal Medicine Nephrology

== ENCOUNTER 2019-12-22 16:30 | Inpatient (IN) ==
[2019-12-22] MEDS ORDERED: Ipratropium/Albuterol Neb 3 ML IH ONE (16:40)
[2019-12-22] MEDS ORDERED: methylPREDNISolone 125 MG/2 ML VIAL IVP ONE (16:40)
[2019-12-22] MEDS ORDERED: *HR* OxyCODONE/APAP 5/325 TABLET PO ONE (16:43)
[2019-12-22 17:34] LABS: BUN/Creatinine Ratio 17 (6-26); Blood Urea Nitrogen 12 mg/dL (8-23); Calcium 8.8 mg/dL (8.6-10.3); Carbon Dioxide 36 mEq/L (23-29); Chloride 95 mEq/L (98-107); Glucose 110 mg/dL (70-105); Osmolality,Calculated 284 (280-300); Potassium 4.2 mEq/L (3.5-5.1); Sodium 137 mEq/L (136-145); eGFR For African Americans > 60 (> 60); eGFR For Non-African Americans > 60 (> 60)
[2019-12-22 17:35] LABS: Troponin I < 0.03 ng/mL (< 0.04)
[2019-12-22] MEDS ORDERED: levoFLOXacin 750 MG/150 ML 750 MG/150 ML BAG IVPB ONE (17:42)
[2019-12-22 17:56] LABS: Basophils % 0.5 %; Eosinophils # 0.2 K/mcL (0.0-0.6); Eosinophils % 3.6 %; Hemoglobin 9.3 g/dL (11.5-15.4); Immature Granulocytes % 0.8 % (0-4); Lymphocytes # 0.6 K/mcL (0.6-4.6); Lymphocytes % 9.7 %; Mean Corpuscular HGB Conc 32.1 g/dL (31.6-35.5); Mean Corpuscular Hemoglobin 28.1 pg (28.0-33.3); Mean Corpuscular Volume 87.6 fL (83.0-100.0); Mean Platelet Volume 8.8 fL (9.4-12.4); Monocytes # 0.5 K/mcL (0.0-1.3); Monocytes % 8.2 %; Neutrophils # 4.9 K/mcL (1.6-8.9); Platelet Count 389 K/mcL (140-400); Red Blood Count 3.31 M/mcL (3.82-4.97); Red Cell Distribution Width 14.1 % (11.5-14.5); Segmented Neutrophils % 77.2 %; White Blood Count 6.4 K/mcL (4.3-11.1)
[2019-12-22] MEDS ORDERED: Isovue-370 500 ML BOTTLE IVP ONE (17:58)
[2019-12-22] MEDS ORDERED: Furosemide 40 MG/4 ML VIAL IVP ONE (20:22)
[2019-12-22] MEDS ORDERED: *HR* LORazepam 0.5 MG TABLET PO ONE (20:22)
[2019-12-22] MEDS ORDERED: Naloxone 0.4 MG/ML INJ IVP PRN (21:16)
[2019-12-22] MEDS ORDERED: Bisacodyl 10 MG RECTAL SUPPOSITORY RC PRN (21:21)
[2019-12-22] MEDS: *HR* OxyCODONE/APAP 5/325 TABLET PO PRN (22:30)
[2019-12-23] MEDS: MethylPREDNISolone 40 MG/ML VIAL IVP SCH ×4 (00:13→17:44)
[2019-12-23] MEDS: Melatonin 3 MG TABLET PO PRN (00:24)
[2019-12-23] MEDS: *HR* Labetalol 20 MG/4 ML SYRINGE IVP PRN (00:25)
[2019-12-23] MEDS: Ipratropium/Albuterol Neb 3 ML IH SCH ×7 (00:51→23:28)
[2019-12-23] MEDS: *HR* OxyCODONE/APAP 5/325 TABLET PO PRN ×5 (02:39→21:29)
[2019-12-23] MEDS: tiZANidine 4 MG TABLET PO PRN ×3 (03:31→15:27)
[2019-12-23 04:22] LABS: Basophils % 0.3 %; Eosinophils % 0.3 %; Hematocrit 29.2 % (35.3-44.9); Immature Granulocytes % 1.9 % (0-4); Lymphocytes # 0.3 K/mcL (0.6-4.6); Lymphocytes % 3.6 %; Mean Corpuscular HGB Conc 30.8 g/dL (31.6-35.5); Mean Corpuscular Hemoglobin 27.6 pg (28.0-33.3); Mean Corpuscular Volume 89.6 fL (83.0-100.0); Mean Platelet Volume 9.1 fL (9.4-12.4); Monocytes # 0.1 K/mcL (0.0-1.3); Monocytes % 0.8 %; Platelet Count 427 K/mcL (140-400); Red Blood Count 3.26 M/mcL (3.82-4.97); Red Cell Distribution Width 13.7 % (11.5-14.5); Segmented Neutrophils % 93.1 %; White Blood Count 7.5 K/mcL (4.3-11.1)
[2019-12-23 04:35] LABS: BUN/Creatinine Ratio 20 (6-26); Blood Urea Nitrogen 14 mg/dL (8-23); Calcium 8.9 mg/dL (8.6-10.3); Carbon Dioxide 34 mEq/L (23-29); Chloride 90 mEq/L (98-107); Glucose 274 mg/dL (70-105); Osmolality,Calculated 288 (280-300); Potassium 4.2 mEq/L (3.5-5.1); Sodium 134 mEq/L (136-145); eGFR For African Americans > 60 (> 60); eGFR For Non-African Americans > 60 (> 60)
[2019-12-23] MEDS ORDERED: *HR* Heparin 5,000 UNIT/ML VIAL SQ SCH (06:00)
[2019-12-23] MEDS: Budesonide/Formoterol 160/4.5 1 PUFF INH IH SCH ×2 (07:40→19:52)
[2019-12-23] MEDS: Famotidine 20 MG TABLET PO SCH ×2 (07:42→15:26)
[2019-12-23] MEDS: Multivit/Ca/Min/Fe/FA 1 TAB TABLET PO SCH (07:42)
[2019-12-23] MEDS: Furosemide 40 MG/4 ML VIAL IVP SCH ×2 (07:43→17:30)
[2019-12-23] MEDS: Budesonide/Formoterol 80/4.5 1 PUFF INH IH SCH ×2 (07:43→19:48)
[2019-12-23] MEDS: Gabapentin 100 MG CAPSULE PO SCH ×3 (07:43→21:19)
[2019-12-23] MEDS: Insulin LISPRO 300 UNITS/3 ML VIAL SQ SCH ×4 (07:44→22:32)
[2019-12-23] MEDS: Nystatin POWDER 30 GM BOTTLE TP SCH (07:56)
[2019-12-23] MEDS: *HR* Enoxaparin 40 MG/0.4 ML SYRINGE SQ SCH (08:08)
[2019-12-23] MEDS: ALPRAZolam 0.5 MG TABLET PO PRN ×2 (14:38→22:39)
[2019-12-23] MEDS: traZODone 50 MG TABLET PO SCH (21:19)
[2019-12-24] MEDS: Nystatin POWDER 30 GM BOTTLE TP SCH ×3 (00:13→21:55)
[2019-12-24] MEDS: tiZANidine 4 MG TABLET PO PRN ×3 (00:32→18:00)
[2019-12-24] MEDS: *HR* OxyCODONE/APAP 5/325 TABLET PO PRN ×5 (03:12→21:56)
[2019-12-24] MEDS: Ipratropium/Albuterol Neb 3 ML IH SCH ×5 (03:44→19:24)
[2019-12-24] MEDS: MethylPREDNISolone 40 MG/ML VIAL IVP SCH (06:43)
[2019-12-24] MEDS: Budesonide/Formoterol 160/4.5 1 PUFF INH IH SCH ×2 (07:39→19:30)
[2019-12-24] MEDS: Budesonide/Formoterol 80/4.5 1 PUFF INH IH SCH ×2 (07:40→19:24)
[2019-12-24] MEDS: Famotidine 20 MG TABLET PO SCH ×2 (08:35→16:29)
[2019-12-24] MEDS: Furosemide 40 MG/4 ML VIAL IVP SCH (08:35)
[2019-12-24] MEDS: *HR* Enoxaparin 40 MG/0.4 ML SYRINGE SQ SCH (08:35)
[2019-12-24] MEDS: Insulin LISPRO 300 UNITS/3 ML VIAL SQ SCH ×4 (08:35→21:54)
[2019-12-24] MEDS: Multivit/Ca/Min/Fe/FA 1 TAB TABLET PO SCH (08:36)
[2019-12-24] MEDS: Gabapentin 100 MG CAPSULE PO SCH ×3 (08:36→21:55)
[2019-12-24] MEDS: Insulin DETEMIR 100 UNIT/ML X5UNITS SQ SCH ×2 (08:36→21:54)
[2019-12-24] MEDS: ALPRAZolam 0.5 MG TABLET PO PRN (10:43)
[2019-12-24] MEDS: *HR* Labetalol 20 MG/4 ML SYRINGE IVP PRN (11:36)
[2019-12-24] MEDS: traZODone 50 MG TABLET PO SCH (21:54)
[2019-12-24] MEDS: Melatonin 3 MG TABLET PO PRN (21:55)
[2019-12-25] MEDS: Ipratropium/Albuterol Neb 3 ML IH SCH ×3 (00:03→07:27)
[2019-12-25] MEDS: tiZANidine 4 MG TABLET PO PRN ×4 (02:03→22:12)
[2019-12-25] MEDS: ALPRAZolam 0.5 MG TABLET PO PRN ×2 (03:43→12:43)
[2019-12-25] MEDS: *HR* OxyCODONE/APAP 5/325 TABLET PO PRN ×3 (04:47→18:41)
[2019-12-25] MEDS: Budesonide/Formoterol 80/4.5 1 PUFF INH IH SCH (07:25)
[2019-12-25] MEDS: Budesonide/Formoterol 160/4.5 1 PUFF INH IH SCH ×2 (07:28→21:55)
[2019-12-25] MEDS ORDERED: *HR* Labetalol 20 MG/4 ML SYRINGE IVP PRN (07:30)
[2019-12-25] MEDS: Multivit/Ca/Min/Fe/FA 1 TAB TABLET PO SCH (07:55)
[2019-12-25] MEDS: predniSONE 20 MG TABLET PO SCH (07:55)
[2019-12-25] MEDS: Gabapentin 100 MG CAPSULE PO SCH ×3 (07:55→19:33)
[2019-12-25] MEDS: Famotidine 20 MG TABLET PO SCH ×2 (07:56→15:58)
[2019-12-25] MEDS: Furosemide 40 MG/4 ML VIAL IVP SCH (07:57)
[2019-12-25] MEDS: *HR* Enoxaparin 40 MG/0.4 ML SYRINGE SQ SCH (07:58)
[2019-12-25] MEDS: Insulin DETEMIR 100 UNIT/ML X5UNITS SQ SCH ×2 (07:59→19:35)
[2019-12-25] MEDS: Insulin LISPRO 300 UNITS/3 ML VIAL SQ SCH ×5 (08:00→22:12)
[2019-12-25] MEDS: Nystatin POWDER 30 GM BOTTLE TP SCH ×2 (08:19→19:33)
[2019-12-25 08:24] LABS: BUN/Creatinine Ratio 34 (6-26); Blood Urea Nitrogen 26 mg/dL (8-23); Carbon Dioxide 37 mEq/L (23-29); Chloride 88 mEq/L (98-107); Glucose 136 mg/dL (70-105); Magnesium 1.9 mg/dL (1.6-2.6); Osmolality,Calculated 285 (280-300); Potassium 4.4 mEq/L (3.5-5.1); Sodium 134 mEq/L (136-145); eGFR For African Americans > 60 (> 60); eGFR For Non-African Americans > 60 (> 60)
[2019-12-25] MEDS: Levalbuterol Neb 0.63 MG/3 ML IH SCH ×4 (08:29→21:55)
[2019-12-25] MEDS ORDERED: *HR* Heparin 5,000 UNIT/ML VIAL IVP PRN ×2 (11:48)
[2019-12-25] MEDS ORDERED: Heparin 25,000 UNIT/250 ML D5W 25,000 UNIT/250 ML IV.SOLN IVC SCH (12:00)
[2019-12-25 12:27] LABS: Mean Corpuscular HGB Conc 31.3 g/dL (31.6-35.5); Mean Corpuscular Hemoglobin 27.9 pg (28.0-33.3); Mean Corpuscular Volume 89.1 fL (83.0-100.0); Mean Platelet Volume 8.8 fL (9.4-12.4); Platelet Count 411 K/mcL (140-400); Red Blood Count 3.59 M/mcL (3.82-4.97); Red Cell Distribution Width 14.3 % (11.5-14.5)
[2019-12-25 12:31] LABS: Heparin anti-factor XA UFH 0.28 IU/mL (0.30-0.70)
[2019-12-25 12:32] LABS: Prothrombin Time 11.4 Seconds (9.4-12.1); White Blood Count 13.2 K/mcL (4.3-11.1)
[2019-12-25] MEDS: Melatonin 3 MG TABLET PO PRN (19:33)
[2019-12-25] MEDS: traZODone 50 MG TABLET PO SCH (19:33)
[2019-12-25] MEDS ORDERED: NON-FORMULARY MEDICATION 1 EACH EACH (Alendronate Sodium [Fosamax] 70 MG) PO SCH (21:21)
[2019-12-26] MEDS: *HR* OxyCODONE/APAP 5/325 TABLET PO PRN ×3 (01:38→16:12)
[2019-12-26] MEDS: Levalbuterol Neb 0.63 MG/3 ML IH SCH ×4 (03:56→16:28)
[2019-12-26] MEDS: Famotidine 20 MG TABLET PO SCH ×2 (06:36→16:08)
[2019-12-26] MEDS: tiZANidine 4 MG TABLET PO PRN ×2 (06:39→16:08)
[2019-12-26] MEDS ORDERED: Azithromycin 500 MG in 0.9 % Sodium Chloride 250 ML IVPB SCH (09:00)
[2019-12-26] MEDS ORDERED: *HR* Enoxaparin 40 MG/0.4 ML SYRINGE SQ SCH (09:00)
[2019-12-26] MEDS: Budesonide/Formoterol 160/4.5 1 PUFF INH IH SCH (10:03)
[2019-12-26] MEDS: Insulin LISPRO 300 UNITS/3 ML VIAL SQ SCH ×2 (11:10→14:10)
[2019-12-26] MEDS: Furosemide 40 MG/4 ML VIAL IVP SCH (11:10)
[2019-12-26] MEDS: predniSONE 20 MG TABLET PO SCH (11:11)
[2019-12-26] MEDS: Gabapentin 100 MG CAPSULE PO SCH ×2 (11:11→16:08)
[2019-12-26] MEDS: Multivit/Ca/Min/Fe/FA 1 TAB TABLET PO SCH (11:11)
[2019-12-26] MEDS: Insulin DETEMIR 100 UNIT/ML X5UNITS SQ SCH (11:12)
[2019-12-26] MEDS: Nystatin POWDER 30 GM BOTTLE TP SCH (11:13)
[2019-12-26] MEDS: ALPRAZolam 0.5 MG TABLET PO PRN (13:55)
[2019-12-26 14:13] VITALS: BP 131/72
== END 2019-12-26 16:52 | disposition short-term general hospital (02) | DRG 190 ==
LOC: EMEROOARM 16:30 → 3ANU 16:30
PROVIDERS: ADMIT Internal Medicine; ATTEND Internal Medicine

== ENCOUNTER 2020-07-19 22:28 | Observation (INO) ==
[2020-07-19] MEDS ORDERED: Ipratropium/Albuterol Neb 3 ML IH ONE (23:12)
[2020-07-19] MEDS ORDERED: predniSONE 20 MG TABLET PO ONE (23:12)
[2020-07-19 23:28] LABS: Basophils % 0.3 %; Eosinophils # 0.1 K/mcL (0.0-0.6); Eosinophils % 1.1 %; Hematocrit 35.3 % (35.3-44.9); Hemoglobin 10.4 g/dL (11.5-15.4); Immature Granulocytes % 0.6 % (0-4); Lymphocytes # 1.2 K/mcL (0.6-4.6); Lymphocytes % 18.2 %; Mean Corpuscular HGB Conc 29.5 g/dL (31.6-35.5); Mean Corpuscular Hemoglobin 25.7 pg (28.0-33.3); Mean Corpuscular Volume 87.2 fL (83.0-100.0); Mean Platelet Volume 10.9 fL (9.4-12.4); Monocytes # 0.5 K/mcL (0.0-1.3); Monocytes % 7.6 %; Neutrophils # 4.8 K/mcL (1.6-8.9); Platelet Count 196 K/mcL (140-400); Red Blood Count 4.05 M/mcL (3.82-4.97); Segmented Neutrophils % 72.2 %; White Blood Count 6.6 K/mcL (4.3-11.1)
[2020-07-19 23:38] LABS: BUN/Creatinine Ratio 26 (6-26); Blood Urea Nitrogen 19 mg/dL (8-23); Calcium 9.1 mg/dL (8.6-10.3); Carbon Dioxide 37 mEq/L (23-29); Chloride 99 mEq/L (98-107); Glucose 165 mg/dL (70-105); Osmolality,Calculated 294 (280-300); Potassium 4.8 mEq/L (3.5-5.1); Sodium 139 mEq/L (136-145); eGFR For African Americans > 60 (> 60); eGFR For Non-African Americans > 60 (> 60)
[2020-07-19 23:39] LABS: Troponin I 0.03 ng/mL (< 0.04)
[2020-07-20] MEDS ORDERED: Azithromycin 500 MG in D5% in Water 250 ML IVPB ONE (00:35)
[2020-07-20 01:01] LABS: Adenovirus Not Detected (Not Detect); Bordetella Pertussis Not Detected (Not Detect); Chlamydophila pneumoniae Not Detected (Not Detect); Coronavirus 229E Not Detected (Not Detect); Coronavirus HKU1 Not Detected (Not Detect); Coronavirus NL63 Not Detected (Not Detect); Coronavirus OC43 Not Detected (Not Detect); Human Metapneumovirus Not Detected (Not Detect); Human Rhinovirus/Enterovirus Not Detected (Not Detect); Influenza A Subtype 2009 H1 Not Detected (Not Detect); Influenza B Not Detected (Not Detect); Mycoplasma pneumoniae Not Detected (Not Detect); Parainfluenza Virus 1 Not Detected (Not Detect); Parainfluenza Virus 2 Not Detected (Not Detect); Parainfluenza Virus 3 Not Detected (Not Detect); Parainfluenza Virus 4 Not Detected (Not Detect); Respiratory Syncytial Virus Not Detected (Not Detect)
[2020-07-20 01:03] LABS: SARS-CoV-2 Not Detected (Not Detect)
[2020-07-20] MEDS ORDERED: Furosemide 40 MG/4 ML VIAL IVP ONE (01:08)
[2020-07-20] MEDS ORDERED: Naloxone 0.4 MG/ML INJ IVP PRN (01:41)
[2020-07-20] MEDS ORDERED: Gabapentin 300 MG CAPSULE PO ONE (04:50)
[2020-07-20 05:48] LABS: Hematocrit 34.1 % (35.3-44.9); Mean Corpuscular HGB Conc 29.3 g/dL (31.6-35.5); Mean Corpuscular Hemoglobin 25.3 pg (28.0-33.3); Mean Corpuscular Volume 86.1 fL (83.0-100.0); Mean Platelet Volume 10.7 fL (9.4-12.4); Platelet Count 194 K/mcL (140-400); Red Blood Count 3.96 M/mcL (3.82-4.97); White Blood Count 8.3 K/mcL (4.3-11.1)
[2020-07-20 06:08] LABS: Alanine Aminotransferase 18 Units/L (7-52); Albumin 3.9 g/dL (3.5-5.7); Albumin/Globulin Ratio 1.5 (1.1-2.2); Alkaline Phosphatase 63 Units/L (34-104); Aspartate Amino Transferase 15 Units/L (13-39); BUN/Creatinine Ratio 22 (6-26); Bilirubin,Total 0.3 mg/dL (0.3-1.0); Blood Urea Nitrogen 18 mg/dL (8-23); Calcium 9.2 mg/dL (8.6-10.3); Carbon Dioxide 36 mEq/L (23-29); Chloride 94 mEq/L (98-107); Globulin 2.6 g/dL (2.4-3.5); Glucose 328 mg/dL (70-105); Magnesium 1.5 mg/dL (1.6-2.6); Osmolality,Calculated 295 (280-300); Phosphorous 2.7 mg/dL (2.7-4.5); Potassium 4.9 mEq/L (3.5-5.1); Sodium 135 mEq/L (136-145); Total Protein 6.5 g/dL (6.4-8.9); Troponin I 0.03 ng/mL (< 0.04); eGFR For African Americans > 60 (> 60); eGFR For Non-African Americans > 60 (> 60)
[2020-07-20] MEDS ORDERED: Dextrose Gel 15 GM/37.5 ML TUBE PO PRN ×2 (06:55)
[2020-07-20] MEDS ORDERED: *HR* Dextrose 50 % in Water (Vial) 50 ML VIAL IVP PRN (06:55)
[2020-07-20] MEDS ORDERED: D5% in Water 1,000 ML IVC PRN (06:55)
[2020-07-20] MEDS ORDERED: Albuterol 2.5 MG/3 ML NEBULIZER IH PRN (06:59)
[2020-07-20] MEDS ORDERED: Insulin LISPRO 300 UNITS/3 ML VIAL SQ SCH ×3 (07:30→21:00)
[2020-07-20] MEDS: predniSONE 20 MG TABLET PO SCH (08:16)
[2020-07-20] MEDS ORDERED: Furosemide 40 MG/4 ML VIAL IVP SCH (09:00)
[2020-07-20] MEDS: Ipratropium/Albuterol Neb 3 ML IH SCH ×3 (10:03→22:11)
[2020-07-20] MEDS: Insulin LISPRO 300 UNITS/3 ML VIAL SQ SCH ×2 (12:51→18:21)
[2020-07-20] MEDS ORDERED: Gabapentin 100 MG CAPSULE PO SCH (15:00)
[2020-07-20] MEDS: *HR* Heparin 5,000 UNIT/ML VIAL SQ SCH (16:04)
[2020-07-20] MEDS: Gabapentin 300 MG CAPSULE PO SCH ×2 (16:04→20:59)
[2020-07-20] MEDS ORDERED: Famotidine 20 MG TABLET PO PRN (18:29)
[2020-07-20] MEDS ORDERED: Acetaminophen 325 MG TABLET PO PRN (18:29)
[2020-07-20] MEDS: tiZANidine 4 MG TABLET PO PRN (21:00)
[2020-07-20] MEDS ORDERED: Insulin DETEMIR 100 UNIT/ML X5UNITS SQ SCH (21:00)
[2020-07-21 01:11] LABS: Hematocrit 31.8 % (35.3-44.9); Hemoglobin 9.6 g/dL (11.5-15.4); Mean Corpuscular HGB Conc 30.2 g/dL (31.6-35.5); Mean Corpuscular Hemoglobin 25.3 pg (28.0-33.3); Mean Corpuscular Volume 83.7 fL (83.0-100.0); Mean Platelet Volume 11.1 fL (9.4-12.4); Platelet Count 236 K/mcL (140-400); Red Cell Distribution Width 14.8 % (11.5-14.5); White Blood Count 7.8 K/mcL (4.3-11.1)
[2020-07-21 01:26] LABS: BUN/Creatinine Ratio 30 (6-26); Blood Urea Nitrogen 30 mg/dL (8-23); Calcium 9.2 mg/dL (8.6-10.3); Carbon Dioxide 35 mEq/L (23-29); Chloride 93 mEq/L (98-107); Glucose 172 mg/dL (70-105); Osmolality,Calculated 292 (280-300); Potassium 4.2 mEq/L (3.5-5.1); Sodium 136 mEq/L (136-145); eGFR For African Americans > 60 (> 60); eGFR For Non-African Americans 53 (> 60)
[2020-07-21] MEDS: Ipratropium/Albuterol Neb 3 ML IH SCH ×2 (03:54→11:03)
[2020-07-21] MEDS: *HR* Heparin 5,000 UNIT/ML VIAL SQ SCH (06:14)
[2020-07-21] MEDS ORDERED: Azithromycin 500 MG in 0.9 % Sodium Chloride 250 ML IVPB SCH (07:00)
[2020-07-21 07:18] VITALS: BP 152/98
[2020-07-21] MEDS ORDERED: Furosemide 40 MG TABLET PO SCH (08:00)
[2020-07-21] MEDS: Insulin LISPRO 300 UNITS/3 ML VIAL SQ SCH (08:53)
[2020-07-21] MEDS: Gabapentin 300 MG CAPSULE PO SCH (08:54)
[2020-07-21] MEDS: predniSONE 20 MG TABLET PO SCH (08:54)
[2020-07-21] MEDS: tiZANidine 4 MG TABLET PO PRN (08:59)
[2020-07-21] MEDS ORDERED: lisinopriL 20 MG TABLET PO SCH (09:00)
== END 2020-07-21 11:17 | disposition home or self-care (01) ==
LOC: EMEROOARM 22:28 → 3BNU 22:28
PROVIDERS: ADMIT Internal Medicine; ATTEND Internal Medicine

== ENCOUNTER 2020-10-11 18:47 | Observation (INO) ==
[2020-10-11] MEDS ORDERED: Ipratropium/Albuterol Neb 3 ML IH ONE (18:56)
[2020-10-11] MEDS ORDERED: Dexamethasone 4 MG/ML VIAL IVP ONE (18:56)
[2020-10-11] MEDS ORDERED: Acetaminophen 325 MG TABLET PO ONE (19:04)
[2020-10-11 19:19] LABS: Basophils % 0.2 %; Eosinophils % 0.2 %; Hematocrit 35.5 % (35.3-44.9); Hemoglobin 10.8 g/dL (11.5-15.4); Immature Granulocytes % 0.5 % (0-4); Lymphocytes # 0.9 K/mcL (0.6-4.6); Mean Corpuscular HGB Conc 30.4 g/dL (31.6-35.5); Mean Corpuscular Hemoglobin 26.7 pg (28.0-33.3); Mean Corpuscular Volume 87.7 fL (83.0-100.0); Mean Platelet Volume 10.1 fL (9.4-12.4); Monocytes # 0.8 K/mcL (0.0-1.3); Monocytes % 5.9 %; Platelet Count 181 K/mcL (140-400); Red Blood Count 4.05 M/mcL (3.82-4.97); Red Cell Distribution Width 14.5 % (11.5-14.5); Segmented Neutrophils % 86.2 %; White Blood Count 12.8 K/mcL (4.3-11.1)
[2020-10-11 19:23] LABS: INR 1.1; Prothrombin Time 13.1 Seconds (9.4-12.1)
[2020-10-11 19:26] LABS: Activated Partial Thrombo Time 31.8 Seconds (26.0-36.0)
[2020-10-11 19:42] LABS: Alanine Aminotransferase 27 Units/L (7-52); Albumin/Globulin Ratio 1.2 (1.1-2.2); Alkaline Phosphatase 77 Units/L (34-104); Aspartate Amino Transferase 20 Units/L (13-39); BUN/Creatinine Ratio 24 (6-26); Bilirubin,Direct 0.2 mg/dL (0.0-0.2); Bilirubin,Indirect 0.5 mg/dL (0.0-1.0); Bilirubin,Total 0.7 mg/dL (0.3-1.0); Blood Urea Nitrogen 24 mg/dL (8-23); Calcium 9.3 mg/dL (8.6-10.3); Carbon Dioxide 36 mEq/L (23-29); Chloride 89 mEq/L (98-107); Globulin 3.4 g/dL (2.4-3.5); Glucose 145 mg/dL (70-105); Osmolality,Calculated 281 (280-300); Sodium 132 mEq/L (136-145); Total Protein 7.4 g/dL (6.4-8.9); Troponin I 0.03 ng/mL (< 0.04); eGFR For African Americans > 60 (> 60); eGFR For Non-African Americans 54 (> 60)
[2020-10-11 20:21] LABS: Bacteria,Urine Moderate per hpf (None-Few); Bilirubin,Urine Negative (Negative); Blood,Urine Negative (Negative); Clarity,Urine Turbid (Clear); Color,Urine Light-Yellow (Yellow); Glucose,Urine (UA) Normal (Normal); Hyaline Casts,Urine Moderate per lpf (None Seen); Ketones,Urine Negative (Negative); Leukocyte Esterase,Urine Large (Negative); Mucus,Urine Few per lpf (None-Few); Nitrite,Urine Negative (Negative); Protein,Urine Trace mg/dL (Neg-Trace); RBC,Urine 0-3 per hpf (0-3); Specific Gravity,Urine 1.014 (1.010-1.025); Squamous Epithelial Cell,Urine Few per hpf (None-Few); Urobilinogen,Urine Normal (Normal); WBC,Urine TNTC per hpf (0-3)
[2020-10-11] MEDS ORDERED: Azithromycin 500 MG in 0.9 % Sodium Chloride 250 ML IVPB ONE (20:21)
[2020-10-11] MEDS ORDERED: cefTRIAXone 1,000 MG in Water for inj. (sterile) 10 ML IVP ONE (20:38)
[2020-10-11] MEDS ORDERED: Ondansetron ODT 4 MG TAB.RAPDIS SL PRN (20:58)
[2020-10-11] MEDS ORDERED: Naloxone 0.4 MG/ML INJ IVP PRN (20:58)
[2020-10-11] MEDS ORDERED: Mag Hydrox/Al Hydrox/Simeth 30 ML UDC PO PRN (20:58)
[2020-10-11] MEDS ORDERED: Acetaminophen 325 MG TABLET PO PRN (20:58)
[2020-10-11] MEDS ORDERED: Furosemide 20 MG/2 ML VIAL IVP ONE (21:03)
[2020-10-11] MEDS ORDERED: Albuterol 2.5 MG/3 ML NEBULIZER IH PRN (21:03)
[2020-10-11] MEDS ORDERED: *HR* Dextrose 50 % in Water (Vial) 50 ML VIAL IVP PRN (21:04)
[2020-10-11] MEDS ORDERED: Dextrose Gel 15 GM/37.5 ML TUBE PO PRN ×2 (21:04)
[2020-10-11] MEDS ORDERED: D5% in Water 1,000 ML IVC PRN (21:04)
[2020-10-11] MEDS ORDERED: Perflutren Lipid Microsphere 1.3 ML in 0.9 % Sodium Chloride 8.7 ML IVP PRN (22:10)
[2020-10-11 22:30] VITALS: BP 102/64
[2020-10-11] MEDS ORDERED: *HR* Amiodarone 150 MG/3 ML VIAL IVPB ONE (23:43)
[2020-10-11] MEDS ORDERED: *HR* EPINEPHrine 1 MG/10 ML SYRINGE IVP ONE (23:43)
[2020-10-11] MEDS: Ipratropium/Albuterol Neb 3 ML IH SCH (23:49)
[2020-10-12] MEDS: Ipratropium/Albuterol Neb 3 ML IH SCH (03:37)
[2020-10-12] MEDS ORDERED: *HR* Heparin 5,000 UNIT/ML VIAL SQ SCH (06:00)
[2020-10-12] MEDS ORDERED: Insulin LISPRO 300 UNITS/3 ML VIAL SQ SCH ×2 (07:30→21:00)
[2020-10-12] MEDS ORDERED: Azithromycin 500 MG in 0.9 % Sodium Chloride 250 ML IVPB SCH (08:00)
[2020-10-12] MEDS ORDERED: predniSONE 20 MG TABLET PO SCH (09:00)
[2020-10-12] MEDS ORDERED: cefTRIAXone 1,000 MG in 0.9 % Sodium Chloride Mini Bag 100 ML IVP SCH (09:00)
== END 2020-10-11 23:44 | disposition expired ==
LOC: EMEROOARM 18:47 → 2ANU 18:47 → SUATTDRO 21:47 → 2ANU 21:54
PROVIDERS: ADMIT Family Medicine; ATTEND Family Medicine